=== PATIENT | female | born 1975 | race Caucasian/White ===

== ENCOUNTER 2020-07-01 08:21 | Observation (INO) ==
--- NOTE | 2020-06-13 15:23 | PAT Medication Instructions ---
Medication Instructions Date of Service June 13, 2020 Home Medications duloxetine [Cymbalta] 60 mg PO QAM ibuprofen [Advil] 600 mg PO QAM linaclotide [Linzess] 145 mcg PO QAM pregabalin [Lyrica] 50 mg PO TID trazodone 150 mg PO HS ASK your surgeon for instructions ibuprofen [Advil] 600 mg PO QAM DO NOT take the morning of surgery linaclotide [Linzess] 145 mcg PO QAM Take morning of surgery With a small sip of water, OTHERWISE NOTHING TO EAT OR DRINK AFTER MIDNIGHT: duloxetine [Cymbalta] 60 mg PO QAM pregabalin [Lyrica] 50 mg PO TID Take evening before surgery pregabalin [Lyrica] 50 mg PO TID trazodone 150 mg PO HS Other Notes If you have any questions please call us at [phone] or [phone] or [phone] or [phone]
--- NOTE | 2020-06-17 14:24 | Anesthesiology Consultation ---
Date of Service June 17, 2020 Assessment & Plan (1) Encounter for pre-operative examination: COVID Status: As of 06/17 assessment, patient denies travel to endemic area, known exposure/sick contacts, or symptoms of COVID19. Patient instructed that they and their household members must follow strict social distancing guidelines, wear a mask in public and avoid travel for 14 days prior to surgery. Preoperative COVID19 testing to be completed prior to surgery per surgeon's ar rangements (pt is aware, has date from surgeon's office). Patient made aware to self-isolate as much as possible between COVID testing and surgery. Chart Review Chart Review: Acceptable Risk for Surgery and Patient seen in Pre Admission T esting Teaching & Discussion Instructed NPO after midnight before surgery, except medications with 15 cc of water. Medication instructions provided according to the PAT guidelines. History Surgery Operation Date: 07/01/20 09:35 Proposed Procedures p C3-C4 Anterior Cervical Discectomy and Fusin, Spinal Cord Monitoring - Tee Ramos DO Height/Weight Height: 5 ft 6 in Weight: 65.5 kg Allergies Allergy/AdvReac Type Severity Reaction Status Date / Time No Known Allergies Allergy Unknown NO Verified 06/11/20 15:40 Medications Home Medications Medication Instructions Recorded Confirmed Last Taken duloxetine [Cymbalta] 60 mg PO QAM 06/11/20 06/11/20 Unknown ibuprofen [Advil] 600 mg PO QAM 06/11/20 06/11/20 Unknown linaclotide [Linzess] 145 mcg PO QAM 06/11/20 06/11/20 Unknown pregabalin [Lyrica] 50 mg PO TID 06/11/20 06/11/20 Unknown trazodone 150 mg PO HS 06/11/20 06/11/20 Unknown Past Medical History Medical History Anxiety Depression Migraine Exercise / Class Metabolic Activity II 4-5 Yardwork/Stairs/Walk up hill Past Family History Family History (Updated 06/11/20 @ 15:46 by Rose Purvis RN) Father Diabetes Grandmother (Maternal) Diabetes Past Surgical History Surgical History History of bilateral tubal ligation History of colposcopy History of urinary tract surgery urethral sling History of vaginal surgery anterior and posterior repair Past Anesthesia History No Hx of Anesthesia Complications and No Family Hx of Anesthesia Complications History of PONV No Hx of PONV and Hx of Motion Sickness Social History Smoking Status: Former smoker Do You Dip or Chew Tobacco: No Smoking End Date: 5 yrs ago Hx Alcohol Use: Yes Alcohol type: beer, wine and hard liquor alcohol intake frequency: holidays/special occasions only Hx Substance Use: No substance use type: does not use Review of Systems Pt denies any recent chest pain, shortness of breath, palpitations, cough, fever, URI, or uncontrolled acid reflux. Physical Exam Vital Signs BP: 107/70 P: 69bpm SPO2: 100% RA T: 98.4 F R: 12 ENMT Mouth: no dental restorations, no chipped teeth and no loose teeth Thyromental Distance: > or= 3.5 Finger Breadths Mallampati Class: I Neck normal visual inspection and + limited neck extension ?thyroid fullness Respiratory normal respiratory effort Auscultation: lungs clear to auscultation bilaterally Cardiovascular Rate/Rhythm: regular rate and regular rhythm Heart Sounds: no murmur Extremities: no edema Testing Laboratory Results 06/17/20 14:31 06/17/20 14:31 PT 10.8 Seconds (9.0-12.0) 06/17/20 14: INR 1.0 (0.9-1.1) 06/17/20 14: APTT 26.6 Seconds (21.0-31.0) 06/17/20 14:31 Urine Color Yellow 06/17/20 14:31 Urine Appearance Clear (Clear) 06/17/20 14: Urine pH 8.5 (4.5-7.5) H 06/17/20 14: Ur Specific [place] 1.012 (1.000-1.030) 06/17/20 14: Urine Protein Negative (Negative) 06/17/20 14:31 Urine Glucose (UA) Negative (Negative) 06/17/20 14: Urine Ketones Negative (Negative) 06/17/20 14: Urine Nitrite Negative (Negative) 06/17/20 14:31 Ur Leukocyte Esterase Negative (Negative) 06/17/20 14:31 Blood Type A Positive 06/17/20 14: Antibody Screen NEGATIVE 06/17/20 14: Electrocardiogram Date: 06/17/20 Findings: + NSR @ (62bpm) Chest X-Ray Date: 06/17/20 Findings: + NAD
--- NOTE | 2020-06-17 15:11 | XRay Report ---
XR chest Pre-admission PA/Lat CLINICAL HISTORY: Preoperative chest COMPARISON STUDY: No previous studies for comparison. FINDINGS: The cardiac and mediastinal contours are normal. There is no evidence of focal pulmonary co nsolidation. There is no evidence of failure. No pleural effusions are visualized.[ IMPRESSION: No active disease in the chest. ACT 112: Negative or not required by law. Electronically signed by: Josh Marie M.D. 06/17/2020 3:10 PM
[2020-06-17 15:22] LABS: Basophils # (auto) 0.03 K/uL (0-0.2); Basophils % (auto) 0.5 %; Eosinophils % (auto) 1.5 %; Hematocrit (blood only) 37.1 % (37-47); Hemoglobin 12.1 g/dL (12.0-16.0); Lymphocytes # (auto) 1.21 K/uL (1.2-3.4); Lymphocytes % (auto) 18.3 %; Mean Corpuscular Hemoglobin 30.3 pg (25-34); Mean Corpuscular Hgb Conc 32.6 g/dL (32-36); Mean Platelet Volume 10.9 fL (7.4-10.4); Monocytes # (auto) 0.51 K/uL (0.11-0.59); Monocytes % (auto) 7.7 %; Neutrophils # (auto) 4.75 K/uL (1.4-6.5); Platelet Count 310 K/uL (130-400); RDW Standard Deviation 44.3 fL (36.4-46.3); Red Blood Count 3.99 M/uL (4.2-5.4)
[2020-06-17 15:27] LABS: Appearance Urine Clear (Clear); Bilirubin Urine Negative (Negative); Blood Urine Negative (Negative); Color Urine Yellow; Glucose Urine UA Negative (Negative); Ketones Urine Negative (Negative); Leukocyte Esterase Urine Negative (Negative); Nitrite Urine Negative (Negative); Protein Urine Negative (Negative); Specific Gravity Urine 1.012 (1.000-1.030); Urobilinogen Urine Negative (Negative); pH Urine 8.5 (4.5-7.5)
[2020-06-17 15:28] LABS: BUN Creatinine Ratio 10.8 (10-20); Calcium 9.1 mg/dl (8.5-10.1); Creatinine Clr Calc Pharmacy 88.4 ml/min; Est GFR (African American) 110.6; Est GFR (Non-African American) 95.4; Potassium 3.9 mmol/L (3.5-5.1)
[2020-06-17 15:40] LABS: Partial Thromboplastin Time 26.6 Seconds (21.0-31.0); Prothrombin Time 10.8 Seconds (9.0-12.0)
--- NOTE | 2020-06-17 16:36 | Electrocardiogram Report ---
Test Reason : Blood Pressure : / mmHG Vent. Rate : 062 BPM Atrial Rate : 062 BPM P-R Int : 146 ms QRS Dur : 086 ms QT Int : 434 ms P-R-T Axes : 055 073 064 degrees QTc Int : 440 ms Normal sinus rhythm Normal ECG No previous ECGs available Confirmed by Ryan Mcdonough ([id number]) on 06/17/2020 4:36:17 PM Referred By: Tee Ramos Confirmed By:Ryan Mcdonough
[~2020-07-01 08:21] MED LIST: ACETAMINOPHEN 500 MG TAB PO SCH; CeleBREX 200 MG CAP PO SCH; GABAPENTIN 900 MG DOSE PO SCH; LR 15ML/HR IV SCH; ceFAZolin 1000MG 1,000 MG/7.5 ML SYR IV SCH
[2020-07-01] MEDS ORDERED: DEXAMETHASONE SOD INJ 4 MG/ML VIAL ONE (08:32)
[2020-07-01] MEDS ORDERED: LIDOCAINE HCL 2% 2 ML VIAL/AMP(20MG/ML) INFIL ONE (08:32)
[2020-07-01] MEDS ORDERED: MIDAZOLAM HCL 1 MG/ML 2ML VIAL ONE (08:32)
[2020-07-01] MEDS ORDERED: fentaNYL citrate 100 MCG/2 ML VIAL ONE ×2 (08:32→08:33)
[2020-07-01] MEDS ORDERED: ONDANSETRON INJ 2 MG/ML 2 ML VIAL ONE (08:32)
[2020-07-01] MEDS ORDERED: ROCURONIUM BROMIDE 10 MG/ML 5 ML VIAL IV ONE (08:32)
--- NOTE | 2020-07-01 08:57 | History & Physical Bridge Note ---
Date of Service July 01, 2020 History & Physical Bridge Note I have examined the patient, reviewed the History & Physical and in the interval since the performance of the History & Physical I have noted the following changes of clinical significance: no changes noted
--- NOTE | 2020-07-01 08:58 | History & Physical Report ---
Date of Service July 01, 2020 Assessment & Plan (1) Cervical stenosis of spinal canal: Admission and Anticipated Discharge Date Admission Date: C3-C4 anterior cervical discectomy and fusion History of Present Illness Chief Complaint: Neck and arm pain Primary Care Provider: Silvano Huang This is a 44-year-old female presents with persistent neck and arm pain after failing course of nonoperative care she is here for surgical invention. Allergies Allergy/AdvReac Type Severity Reaction Status Date / Time No Known Allergies Allergy Unknown NO Verified 07/01/20 08:43 Home Medications Home Medications Medication Instructions Recorded Confirmed Type duloxetine [Cymbalta] 60 mg PO QAM 06/11/20 07/01/20 History ibuprofen [Advil] 600 mg PO QAM 06/11/20 07/01/20 History linaclotide [Linzess] 145 mcg PO QAM 06/11/20 07/01/20 History pregabalin [Lyrica] 50 mg PO TID 06/11/20 07/01/20 History trazodone 150 mg PO HS 06/11/20 07/01/20 History Past Med/Surg History Medical History (Updated 07/01/20 @ 08:58 by Tee Ramos DO) Anxiety Depression Migraine Surgical History History of bilateral tubal ligation History of colposcopy History of urinary tract surgery urethral sling History of vaginal surgery anterior and posterior repair Family History Father Diabetes Grandmother (Maternal) Diabetes Social History Smoking Status: Former smoker Smoking End Date: 5 yrs ago; Second Hand Exposure: No; Do You Dip or Chew Tobacco: No; Tobacco Cessation Education Requested by Patient: No Hx Alcohol Use: Yes Alcohol type: beer, wine and hard liquor Hx Substance Use: No Preferred Language: Afghan Communication Ability: Effective Dental Resident Required: No Beliefs That Will Affect Care: None Current Living Situation: Significant Other Other Information That Helps Us Care for You: No Feels Safe at Home: Yes Safety Concerns: Feels Safe At This Time Assistive Devices: Glasses Physical Exam Physical Exam: Patient is alert and oriented Heart regular rate and rhythm Lungs clear to auscultation Results & Data ([place]) Vital Signs (Past 12 Hours) Vital Signs Temp Pulse Resp BP Pulse Ox 07/01/20 08:46 36.7 C 54 L 20 120/50 L 100
[2020-07-01] MEDS ORDERED: BACITRACIN INJ 50,000 UNIT VIAL ONE (09:11)
[2020-07-01] MEDS ORDERED: ePHEDrine sulfate 50 MG/ML AMP IV PRN (09:22)
[2020-07-01] MEDS ORDERED: ONDANSETRON INJ 2 MG/ML 2 ML VIAL IV PRN ×2 (09:22→13:22)
[2020-07-01] MEDS ORDERED: ATROPINE SULFATE 0.1 MG/ML 10ML SYR IV PRN (09:22)
[2020-07-01] MEDS ORDERED: FLOSEAL HEMOSTATIC MATRIX 10ML TOP ONE (10:07)
[2020-07-01] MEDS ORDERED: NEOSTIGMINE METHYLSULFATE 1 MG/ML 10ML VIAL ONE (10:31)
[2020-07-01] MEDS ORDERED: GLYCOPYRROLATE 0.2 MG/ML VIAL ONE (10:31)
--- NOTE | 2020-07-01 10:46 | Operative Report ---
Post Operative Report Pre & Post Diagnosis Operation Date: 07/01/20 09:35 Pre-Op Diagnosis: Spinal Stenosis, Cervical Region Post-Op Diagnosis: Spinal Stenosis, Cervical Region I identified the patient and participated in the time-out.: Yes Procedure Operation Date: 07/01/20 09:35 Actual Procedures #1 anterior cervical discectomy and fusion C3-C4. #2 anterior cervical arthrodesis C3-C4. #3 placement of globus coalition cage 7 mm in height filled with DBM at C3-C4. Surgeon Tee Ramos, [place]ney Supervisor Brick Salina Lauren Estimated Blood Loss 10 Findings Consistent with Post-Op Diagnosis Specimens None Indications This is a 44-year-old female who presents with above-mentioned diagnosis failing course of nonoperative care is here for the above-mentioned procedure. Description of Procedure Patient was met with identified informed consent obtained. Patient was then taken to the operative suite underwent an patient placed in supine position Anish table with head De Oliveira grease maker head. All bony prominences well-padded eyes inspected to ensure no external pressure placed upon them. This point the anterior cervical spine was prepped and draped in a sterile fashion. With the assistance of fluoroscopy identified the C3-C4 displacement transverse incision was placed on the right anterior aspect of the cervical spine. Sharp dissection with assistance of bipolar cautery was performed down to and exposing the anterior cervical spine at C3 and C4. Self-retaining tractor was placed. Then performed a complete discectomy of C3-4 out to the uncovertebral joints bilaterally. [place] distracting pins were utilized to assist in visualization. I removed all posterior annular fibers longitudinal ligament bilateral foraminotomies removal of all central disc herniation removed. Endplates were then burred to subcortical bleeding bone and a 7 mm coalition cage filled with DBM tapped in position. Was screwed into place with 14 mm screws. Incision was then copiously irrigated explored to ensure no damage to surrounding structures remaining bleeding. 10 round ALFREDO inserted. The incision was then closed with 2 Vicryl in a fashion of 4 Monocryl for final skin closure. Steri-Strip sterile dressings placed. Patient will continue PACU stable condition. Please note s kimi cord monitoring was utilized at the procedure and no changes noted. Lastly Salina Lauren was present at the entire surgery involved the patient positioning complex portions of the surgery and final skin closure. I attest to the content of the Intraoperative Record and any orders documented therein. Any exceptions are noted below.
--- NOTE | 2020-07-01 11:07 | Fluoroscopy Report ---
FL cervical 2-3V CLINICAL HISTORY: ACDF C3-C4 COMPARISON STUDY: MRI of the cervical spine April 18, 2020. FLUOROSCOPY TIME: 7 seconds. FLUOROSCOPIC IMAGES: 2 FINDINGS: Fluoroscopy was provided during C3-C4 anterior discectomy and fusion. Hardware is intact. S econd image demonstrates a probable surgical drain. Endotracheal tube is partially imaged. IMPRESSION: Fluoroscopy provided during C3-C4 anterior discectomy and fusion. ACT 112: Negative or not required by law. Electronically signed by: Kiran Flannery M.D. 07/01/2020 11:05 AM
[2020-07-01] MEDS: fentaNYL citrate 100 MCG/2 ML VIAL IV PRN ×4 (11:13→11:34)
[2020-07-01] MEDS ORDERED: HYDROmorphone INJ 1 MG/ML SYRINGE ONE (11:44)
[2020-07-01] MEDS: HYDROmorphone INJ 1 MG/ML SYRINGE IV PRN ×4 (11:50→12:14)
--- NOTE | 2020-07-01 12:28 | Anesthesiology Progress Note ---
Date of Service July 01, 2020 Anesthesia Post Procedure Vital Signs Vital Signs: Temp Pulse Pulse Resp BP BP Pulse Ox 07/01/20 12:20 68 16 108/60 96 07/01/20 12:10 74 16 115/67 94 07/01/20 12:00 75 16 112/66 96 07/01/20 11:50 78 16 116/65 97 07/01/20 11:40 72 16 114/70 96 07/01/20 11:30 75 14 119/67 97 07/01/20 11:20 80 16 116/75 100 07/01/20 11:10 98 H 16 115/73 100 07/01/20 11:03 97.0 F L 117 H 12 123/71 96 07/01/20 08:46 98.1 F 54 L 20 120/50 L 100 Pain Intensity Anterior Neck: Pain Intensity: 6 Posterior Neck: Pain Intensity: 7 Transfer of Care Handoff Completed per policy Notes Mental Status: alert / awake / arousable and participated in evaluation Patient Amnestic to Procedure: Yes Nausea / Vomiting: adequately controlled Pain: adequately controlled Airway Patency, RR, SpO2: stable & adequate BP & HR: stable & adequate Hydration State: stable & adequate Anesthetic Complications: no major complications apparent and Pt Satisfied with anesthetic care
[2020-07-01] MEDS ORDERED: LORazepam 0.5 MG/1 ML VIAL IV PRN (13:22)
[2020-07-01] MEDS ORDERED: hydrOXYzine HCl 25 MG TAB PO PRN (13:22)
[2020-07-01] MEDS ORDERED: DO NOT ADMINISTER FLU VACCINE PRN (13:22)
[2020-07-01] MEDS ORDERED: HYDROmorphone INJ 0.5 MG/0.5 ML SYR IV PRN (13:22)
[2020-07-01] MEDS ORDERED: DO NOT ADMINISTER PNEUMOCOCCAL VACCINE PRN (13:22)
[2020-07-01] MEDS ORDERED: traMADol HCL 50 MG TABLET PO PRN (13:22)
[2020-07-01] MEDS ORDERED: RACEPINEPHRINE 2.25% NEBU SOLN 0.5 ML VIAL INH PRN (13:22)
[2020-07-01] MEDS ORDERED: MAGNESIUM HYDROXIDE SUSP 30 ML UDC PO PRN (13:22)
[2020-07-01] MEDS ORDERED: FAMOTIDINE 20 MG TAB PO PRN (13:22)
[2020-07-01] MEDS ORDERED: HYDROmorphone INJ 1 MG/ML SYRINGE IV PRN (13:22)
[2020-07-01] MEDS ORDERED: ACETAMINOPHEN 500 MG TAB PO PRN (13:22)
[2020-07-01] MEDS ORDERED: NALOXONE HCL 0.4 MG/1 ML VIAL/CARP IV PRN (13:22)
[2020-07-01] MEDS ORDERED: METOCLOPRAMIDE HCL INJ 5 MG/ML 2 ML VIAL IV PRN (13:22)
[2020-07-01] MEDS ORDERED: DEXAMETHASONE SOD PHOSPHATE 8 MG in SYRINGE 0 ML IV PRN (13:22)
[2020-07-01] MEDS ORDERED: ALUMINUM/MAGNESIUM SUSP 30 ML UDC PO PRN (13:22)
[2020-07-01] MEDS ORDERED: ACETAMINOPHEN 1,000 MG/100 ML VIAL IV PRN (13:22)
[2020-07-01] MEDS ORDERED: SOD PHOSPHATE/SOD BIPHOSPHATE ENEMA 132 ML BTL PR PRN (13:22)
[2020-07-01] MEDS ORDERED: PROMETHAZINE HCL 12.5 MG in SODIUM CHLORIDE 0.9% 50 ML IV PRN (13:22)
[2020-07-01] MEDS ORDERED: diphenhydrAMINE Capsule 25 MG CAP PO PRN (13:22)
[2020-07-01] MEDS ORDERED: ONDANSETRON 4 MG OD TAB PO PRN (13:22)
[2020-07-01] MEDS: oxyCODONE HCL IR 5 MG TAB (IMMEDIATE RELEASE) PO PRN ×3 (14:24→23:27)
[2020-07-01] MEDS: LACTATED RINGER'S 1,000 ML IV SCH ×2 (14:25→19:17)
[2020-07-01] MEDS: PREGABALIN 50 MG CAP PO SCH ×2 (14:28→20:51)
[2020-07-01] MEDS: LORazepam 0.5 MG TAB PO PRN (18:46)
[2020-07-01] MEDS: ceFAZolin 1000MG 1,000 MG/7.5 ML SYR IV SCH (18:47)
[2020-07-01] MEDS ORDERED: traZODone HCL 50 MG TAB PO SCH (21:00)
[2020-07-01] MEDS ORDERED: DOCUSATE SODIUM/SENNA 50/8.6MG TAB PO SCH (21:00)
[2020-07-02] MEDS: ceFAZolin 1000MG 1,000 MG/7.5 ML SYR IV SCH (03:10)
[2020-07-02] MEDS: LORazepam 0.5 MG TAB PO PRN ×2 (03:10→08:56)
[2020-07-02] MEDS: oxyCODONE HCL IR 5 MG TAB (IMMEDIATE RELEASE) PO PRN ×2 (03:14→07:19)
[2020-07-02] MEDS ORDERED: POLYETHYLENE (MIRALAX) 17 GM PACK PO SCH (06:00)
[2020-07-02 07:15] VITALS: TEMP 97.9
[2020-07-02] MEDS: PREGABALIN 50 MG CAP PO SCH (08:56)
[2020-07-02] MEDS ORDERED: DULoxetine HCL 60 MG CAP PO SCH (09:00)
[2020-07-02 09:30] VITALS: BP 97/60
[2020-07-02 10:54] VITALS: PULSE 73; O2SAT 96
--- NOTE | 2020-07-02 11:50 | Discharge Summary ---
Date of Service July 02, 2020 Admission HPI Per Admitting Provider This is a 44-year-old female presents with persistent neck and arm pain after failing course of nonoperative care she is here for surgical invention. Principal Diagnosis Cervical spinal stenosis with radiculopathy Discharge Data Allergies Allergy/AdvReac Type Severity Reaction Status Date / Time chlorhexidine Allergy Rash Verified 07/01/20 08:59 Procedures Performed Operation Date: 07/01/20 09:35 Actual Procedures p C3-C4 Anterior Cervical Discectomy and Fusion, Spinal Cord Monitoring(Not Applicable) - Tee Ramos DO Ordered Studies 07/01/20 09:35 FL cervical 2-3V Routine FL fluoroscopy <1hr Routine Hospital Course (1) Cervical stenosis of spinal canal: Patient underwent anterior cervical discectomy fusion C3-C4 tolerates well was taken to orthopedic floor postoperative. Postop day 1 she is swallowing well no hoarseness arm symptoms improved swallowing well ALFREDO drain decreasing probably. Subsequent discharge home. Discharge orders instructions from the chart for further review. Total Time Total Time Spent Total Time Spent (In Minutes): 20 minutes Discharge Plan Discharge Items Patient Disposition: Home - Self-Care Reason For Visit: Spinal Stenosis, Cervical Region Discharge Diagnosis: Cervical spinal stenosis with myeloradiculopathy Activity: As commented below Non-emergency contact: Primary Care Provider Call non-emergency contact if: you have any medication questions Follow-up/Referrals: Silvano Huang [Primary Care Provider] - Diet: Regular Addtl Attending Provider Instructions: ACTIVITY RECOMMENDATIONS: SELF CARE INSTRUCTIONS AFTER CERVICAL FUSIONS 1. No smoking. Smoking drastically decreases the chance of a solid fusion. 2. No bending, lifting more than 5 pounds, or twisting (roll like a log when turning in bed). 3. You may shower 3 days after surgery. Thoroughly dry wound. Do not soak in the tub. 4. Cervical collar: Must be worn at all times including sleeping. You may remove the brace only to bath, eat and if you are sitting in a recliner. 5. Please walk as much as you can for exercise. Gradually increase the distance that you walk as your endurance increases. SPECIAL CARE INSTRUCTIONS: VERY IMPORTANT TO READ AND REVIEW A. Do not take any anti-inflammatory medications (i.e. Indocin, Advil, Aspirin, Naprosyn, Aleve, Motrin, etc.) as these may inhibit the chance of a solid fusion. Tylenol is okay to take. B. Your surgical incision has been closed with a cosmetic suture under the skin that will dissolve in about 6 weeks. In 14 days, you can use a pair of clean scissors and cut the suture that is left outside of the skin at the ends of your incision. C. Complications are uncommon, but please contact us if you have any signs or symptoms of: 1. wound infection (fever higher than 102.5 degrees F, redness, separation of wound, drainage, or increasing pain from the incision) 2. blood clots in legs (pain, swelling, redness and warmth in legs) 3. urinary tract infection (fever higher than 102.5 degrees, burning upon urination or increased frequency of urination) 4. nerve problems (inability to walk on your toes or heels, numbness, loss of bowel or bladder control) 5. any other symptoms that concern you. D. Please call the office at if you have any concerns or questions about your operation or recovery. MANAGING PAIN AFTER SPINAL SURGERY 1. Narcotic medication is intended for short-term use and will be provided for surgical pain. Surgical pain usually lasts for a period of 4-6 weeks. Narcotic medication includes Percocet, Vicodin, Darvocet, Tylenol #3 or Lortab. 2. Longer-term pain is more appropriately treated with non-narcotic medication such as Tylenol ES. 3. Muscle spasm is not appropriately treated with narcotics. Muscle relaxers such as Soma, Flexeril or Skelaxin can be used along with Tylenol ES. 4. Remember that we all live with some "aches and pains". This is not unusual or uncommon after an injury or as we get older. 5. We will provide appropriate medication within the normal guidelines of their prescribed use. We will also be very cautious and aware of potential abuse and extended duration of patients' medication needs. 6. Please allow 2-3 days to process refills. Prescriptions will not be mailed but must be picked up at the office. FOLLOW UP VISIT: Keep your scheduled follow-up appointment. Any questions, please call the office at . Pending Studies at Discharge: No Stand-Alone Forms: [facility], Opioid Pain Management, Smoking Cessation Medications and DC Order Prescriptions: New tramadol 50 mg tablet 50 mg PO Q6H PRN (Reason: pain, moderate) Qty: 20 RF: 0 oxycodone 5 mg tablet 5 mg PO Q6H PRN (Reason: pain, severe) Qty: 20 RF: 0 Continued trazodone 150 mg Tablet 150 mg PO HS RF: 0 ibuprofen [Advil] 200 mg Tablet 600 mg PO QAM RF: 0 duloxetine [Cymbalta] 60 mg Capsule,Delayed Release(Dr/Ec) 60 mg PO QAM RF: 0 pregabalin [Lyrica] 50 mg Capsule 50 mg PO TID RF: 0 Linzess 145 mcg Capsule 145 mcg PO QAM RF: 0 Discharge Orders: Discharge Order (Routine); Ordered 07/02/20 Ordered By: Tee Farah/Other Patient Handouts: ED Cervical Collar Admission Data Admit Date/Time: 07/01/20 11:09 Attending Provider: Tee Ramos Admit Provider: Tee Ramos Primary Care Provider: Silvano Huang Other Interventions: Discharge Summary Assessment (RN) Last Done: 07/02/20 09:29
[2020-07-03] MEDS ORDERED: bisacodyL 10 MG SUPP PR PRN (10:48)
== END 2020-07-02 12:16 | disposition home or self-care (01) ==
LOC: ASU 08:21 → 3E 08:21

== ENCOUNTER 2021-07-19 18:41 | Inpatient (IN) ==
[2021-07-19] MEDS ORDERED: MoRPHine SULFATE 10 MG/ML CARP/VIAL IM STA (20:10)
[2021-07-19] MEDS ORDERED: KETOROLAC TROMETHAMINE 60 MG/2 ML VIAL IM STA (20:10)
--- NOTE | 2021-07-19 20:13 | Emergency Department Note ---
Impression & Plan Cervical radiculopathy ADMIT ED Provider Note HPI: The patient is a 46-year-old female with history of cervical stenosis, presents the emergency department with multiple complaints. Patient states that over the past several days she has had worsening pain in the area of the bilateral trapezius and upper back, states that she is also had some numbness/tingling in her bilateral upper extremities. Patient states that she had an MRI performed of her thoracic spine this past at [facility], states she is unaware of the results as of yet. She follows with Dr. Ramos from spinal surgery who has previously performed anterior discectomy and C3/C4 fusion approximately 1 year ago for the patient. Patient tells me that she was scheduled to have a surgery done for discectomy of her cervical spine tomorrow, states that this was delayed secondary to bed shortage and COVID-19 pandemic. Patient states that she was told if her pain worsen to come to the emergency department. She states that her pain has been worsening and she would like Dr. Ramos to be consulted. ROS: -MSK: Upper back pain, radicular pain from cervical spine area *10 point review systems was conducted and is otherwise negative unless stated above *Outpatient medications and allergy history reviewed PE: General: Alert, NAD HEENT: Normocephalic, atraumatic, trachea midline Eyes: Extraocular eye movement is intact, no scleral erythema Pulmonary: Clear to auscultation bilaterally, no wheezing Cardio: Regular rate and rhythm GI: Abdomen is soft, nontender : No suprapubic tenderness MSK: No evidence of trauma or malformation of the extremities, no edema Skin: No evidence of rash Neuro: Alert, equal bilateral boring machine operator double end strength, dorsiflexion and plantarflexion strength is 5 out of 5, patient does not have any focal deficits Psychiatric: Cooperative Medical Decision Making: Shortly after arrival the patient was given IM Toradol, IM steroids, IM morphine for pain. On my reassessment she states that she does feel improved. She does not have any acute emergent neurologic findings on my exam, her strength is intact, she is ambulatory without issue. She was previously scheduled apparently for discectomy which she tells me was supposed to be done tomorrow, I did discuss the above findings with Dr. Ramos who states that given that the pain is worsening and the patient is very upset at the prospect of discharge home he will admit to his service for further management and review of MRI that was obtained last week Patient was in agreement to the above plan and she was admitted to observation under Dr. Ramos's service for further care. * Diagnosis: Cervical radiculopathy, upper back pain, radicular pain * Disposition: Admission to observation Derrek Segovia DO Emergency Medicine Past Med/Surg History Medical History Anxiety Chronic back pain LOWER BACK Depression Migraine HX Surgical History Fusion of spine CERVICAL-07/01/20 [facility] History of bilateral tubal ligation History of colposcopy History of urinary tract surgery urethral sling History of vaginal surgery anterior and posterior repair Family History Father Diabetes Grandmother (Maternal) Diabetes Social History (Updated 05/14/21 @ 09:49 by Rubina Banerjee RN) Smoking Status: Current every day smoker Tobacco Type: E-cigarettes / Vaping Cigarettes Per Day: VAPES DAILY; Second Hand Exposure: Yes (PARENTS SMOKED); Hx Alcohol Use: Yes Alcohol type: beer, wine and hard liquor Hx Substance Use: No Preferred Language: Croatian Communication Ability: Effective Rabbit Dresser Required: No Beliefs That Will Affect Care: None marital status: Life Partner Current Living Situation: Significant Other current occupational status: other current occupation: DOES NOT WORK Feels Safe at Home: Yes Assistive Devices: None Allergies Allergies Allergy/AdvReac Type Severity Reaction Status Date / Time chlorhexidine Allergy Rash Verified 07/01/20 08:59 Home Meds Home Medications Medication Instructions Recorded Confirmed duloxetine 60 mg capsule,delayed 60 mg PO QAM 06/11/20 05/14/21 release (Cymbalta) ibuprofen 200 mg tablet (Advil) 400 mg PO Q6H PRN 06/11/20 05/14/21 linaclotide 145 mcg capsule 145 mcg PO QAM 06/11/20 05/14/21 (Linzess) pregabalin 50 mg capsule (Lyrica) 50 mg PO TID 06/11/20 05/14/21 trazodone 150 mg tablet 150 mg PO HS 10/14/20 09/16/21 Results & Data (ED) Vital Signs Vital Signs - 24 hr 07/19/21 19:05 07/19/21 21:03 Temperature 36.5 C Temperature Source Temporal Artery Scan Pulse Rate 103 H Pulse Rate [Radial] 75 Respiratory Rate 18 20 Respiratory Depth Normal Blood Pressure 110/69 Blood Pressure [Right Arm] 104/54 L Blood Pressure Mean 82 Blood Pressure Mean [Right Arm] 70 Blood Pressure Position Sitting Pulse Oximetry 98 95 Oxygen Delivery Method Room Air Room Air Sepsis Recent Fever Within 48 Hours No Sepsis New/Unexplained Change in Mental Status N/A Sepsis Action Taken by Nursing No Action Required Administered Medications Discontinued Medications Ketorolac Tromethamine (Ketorolac Tromethamine 60 Mg/2 Ml Vial) 60 mg IM NOW STA Stop: 07/19/21 20:11 Last Admin: 07/19/21 20:35 Dose: 60 mg Documented by: [id number] Methylprednisolone (Methylprednisolone 40 Mg/Ml Vial) 80 mg IM NOW STA Stop: 07/19/21 20:11 Last Admin: 07/19/21 20:35 Dose: 80 mg Documented by: [id number] Morphine Sulfate (Morphine Sulfate 10 Mg/Ml Carp/Vial) 6 mg IM NOW STA Stop: 07/19/21 20:11 Last Admin: 07/19/21 20:34 Dose: 6 mg Documented by: [id number] Discharge Plan Visit Data Chief Complaint: Neck Injury/Pain Stated Complaint: HERNIATED DISC IN NECK,PAIN INTO SHOULDERS ED Provider: Derrek Segovia Discharge Problem: Cervical radiculopathy Forms Stand Alone Forms: [facility] Prescriptions Prescriptions: No Action trazodone 150 mg Tablet 150 mg PO HS RF: 0 ibuprofen [Advil] 200 mg Tablet 400 mg PO Q6H PRN (Reason: Pain) RF: 0 duloxetine [Cymbalta] 60 mg Capsule,Delayed Release(Dr/Ec) 60 mg PO QAM RF: 0 pregabalin [Lyrica] 50 mg Capsule 50 mg PO TID RF: 0 Linzess 145 mcg Capsule 145 mcg PO QAM RF: 0 Referrals Referrals: Silvano Huang [Primary Care Provider] -
[2021-07-20] MEDS ORDERED: MoRPHine SULFATE 4 MG/ML 1 ML CARP\\VIAL IV STA (01:21)
[2021-07-20] MEDS ORDERED: NALOXONE HCL 0.4 MG/1 ML VIAL/CARP IV PRN (02:13)
[2021-07-20] MEDS ORDERED: ACETAMINOPHEN 1,000 MG/100 ML VIAL IV PRN (02:13)
[2021-07-20] MEDS ORDERED: SOD PHOSPHATE/SOD BIPHOSPHATE ENEMA 132 ML BTL PR PRN (02:13)
[2021-07-20] MEDS ORDERED: LORazepam 0.5 MG/1 ML VIAL IV PRN (02:13)
[2021-07-20] MEDS ORDERED: diphenhydrAMINE Capsule 25 MG CAP PO PRN (02:13)
[2021-07-20] MEDS ORDERED: LORazepam 0.5 MG TAB PO PRN (02:13)
[2021-07-20] MEDS ORDERED: MAGNESIUM HYDROXIDE SUSP 30 ML UDC PO PRN (02:13)
[2021-07-20] MEDS ORDERED: LACTATED RINGER'S 1,000 ML IV SCH (02:13)
[2021-07-20] MEDS ORDERED: oxyCODONE HCL IR 5 MG TAB (IMMEDIATE RELEASE) PO PRN (02:13)
[2021-07-20] MEDS ORDERED: ACETAMINOPHEN 500 MG TAB PO PRN (02:13)
[2021-07-20] MEDS ORDERED: PROMETHAZINE HCL 12.5 MG in SODIUM CHLORIDE 0.9% 50 ML IV PRN (02:13)
[2021-07-20] MEDS ORDERED: traMADol HCL 50 MG TABLET PO PRN (02:13)
[2021-07-20] MEDS ORDERED: ONDANSETRON INJ 2 MG/ML 2 ML VIAL IV PRN (02:13)
[2021-07-20] MEDS ORDERED: ONDANSETRON 4 MG OD TAB PO PRN (02:13)
[2021-07-20] MEDS ORDERED: HYDROmorphone INJ 0.5 MG/0.5 ML SYR IV PRN (02:13)
[2021-07-20] MEDS ORDERED: hydrOXYzine HCl 25 MG TAB PO PRN (02:13)
[2021-07-20] MEDS ORDERED: ALUMINUM/MAGNESIUM SUSP 30 ML UDC PO PRN (02:13)
[2021-07-20] MEDS ORDERED: METOCLOPRAMIDE HCL INJ 5 MG/ML 2 ML VIAL IV PRN (02:13)
[2021-07-20] MEDS: HYDROmorphone INJ 1 MG/ML SYRINGE IV PRN ×4 (02:37→16:48)
--- NOTE | 2021-07-20 03:01 | Hospitalist Consultation ---
Date of Consultation July 20, 2021 Assessment & Plan (1) Cervical radiculopathy: Final Assessment and Recommendations as follows : Cervical radiculopathy status post surgery Worsening debility Anxiety/mood disorder, at baseline Surgical management of cervical radiculopathy as per Orthopedics spine Hold parameters for nightly Trazodone for sedation confusion. DVT prophylaxis. SCDs as per Orthopedics admission orders. Thank you very much for this consultation. Dr. Reyes will follow patient's progress. Text document was generated using [employer] voice recognition software. It may contain grammatical or spelling errors. Kindly contact undersigned for clarification of any documentation item in question. History of Present Illness Reason for Consultation: Medical management Requesting Physician: Dr. Ramos Attending Physician: Tee Ramos DO History of Present Illness PCP : Dr. Huang History obtained from patient and records. Medical history significant for chronic back pain status post surgery anxiety/mood disorder, migraine. Last confinement June 2020 under orthopedic spine service for cervical radiculopathy status post surgery. Patient noted worsening neck pain with right upper extremity radiation and weakness the last few months. Elective cervical spine surgery supposedly scheduled today was to be delayed secondary to hospital bed shortage secondary to COVID-19 pandemic. Patient consulted ER yesterday for worsening symptoms. Currently admitted under Orthopedics spine service. Patient denies chest pain, S OB, fever, chills. Medical History as above Surgical History : Neck surgery, BTL, gynecologic procedures Family History : DM Personal/Social history : Vape use, occasional EtOH intake, disabled Allergies Allergy/AdvReac Type Severity Reaction Status Date / Time chlorhexidine Allergy Rash Verified 07/01/20 08:59 Home Medications Medication Instructions Recorded Confirmed Type duloxetine 60 mg capsule,delayed 60 mg PO QAM 06/11/20 05/14/21 History release (Cymbalta) ibuprofen 200 mg tablet (Advil) 400 mg PO Q6H PRN 06/11/20 05/14/21 History pregabalin 50 mg capsule (Lyrica) 50 mg PO TID 06/11/20 05/14/21 History trazodone 150 mg tablet 150 mg PO HS 06/11/20 05/14/21 History linaclotide 72 mcg capsule 72 mcg PO DAILY 07/20/21 07/20/21 History (Linzess) Patient History Medical History Anxiety Chronic back pain LOWER BACK Depression Migraine HX Surgical History Fusion of spine [facility]ERVICAL-07/01/20 [facility] History of bilateral tubal ligation History of colposcopy History of urinary tract surgery urethral sling History of vaginal surgery anterior and posterior repair Family History Father Diabetes Grandmother (Maternal) Diabetes Social History Smoking Status: Never smoker Tobacco Type: E-cigarettes / Vaping Cigarettes Per Day: VAPES DAILY; Second Hand Exposure: Yes (PARENTS SMOKED); Hx Alcohol Use: No Hx Substance Use: No Preferred Language: Indonesian Communication Ability: Effective Nanotechnology Engineering Technician Required: No Beliefs That Will Affect Care: None marital status: Life Partner Current Living Situation: Family current occupational status: other current occupation: DOES NOT WORK Feels Safe at Home: Yes Safety Concerns: Feels Safe At This Time Assistive Devices: None Review of Systems Review of Systems: As per HPI, all 10 systems reviewed, all other ROS negative Physical Exam Physical Exam: GENERAL: Comfortable, pleasant, no respiratory distress SKIN: Normal color, warm HEENT: [place] palpebral conjunctivae, no ptosis, moist buccal mucosa NECK : Some limitation neck motion, minimal cervical tenderness CHEST : CTA, no tenderness HEART : RRR, no obvious murmurs ABDOMEN: Some distention, nontender EXTREMITIES : No LE swelling/tenderness, no other conspicuous deformities noted NEUROLOGIC : Coherent, no facial asymmetry, subtle weakness RUE compared to LUE Results & Data Results & Data ([facility]) Vital Signs (Past 12 Hours) Vital Signs Temp Pulse Pulse Resp BP BP Pulse Ox 07/20/21 01:51 72 16 114/64 99 07/20/21 00:06 74 16 112/62 100 07/19/21 21:03 75 20 104/54 L 95 07/19/21 19:05 36.5 C 103 H 18 110/69 98 Laboratory Results Laboratory Results SARS-CoV-2, RNA, NAAT NEGATIVE (NEGATIVE) 07/19/21 22:38
[2021-07-20] MEDS: DULoxetine HCL 60 MG CAP PO SCH (07:30)
[2021-07-20] MEDS: PREGABALIN 50 MG CAP PO SCH ×3 (08:42→20:03)
[2021-07-20] MEDS ORDERED: LINACLOTIDE 145 MCG CAPSULE PO SCH (09:00)
--- NOTE | 2021-07-20 12:43 | Hospitalist Progress Note ---
Date of Service July 20, 2021 Assessment & Plan (1) Cervical radiculopathy: Plan: This is a 46-year-old female who is otherwise healthy who presented to ER due to persistent neck pain with radiation of numbness and tingling to right upper extremity. She has a prior C3-C4 ACDF approximately [address] Rmaos. Evidence of a large disc herniation at C5-C6 Appreciated Ortho input and recommendation for anterior cervical discectomy and fusion C5-C6 on 07/21/2021 Pain management per orthopedics NPO after midnight, resume LR @ midnight Back pain with lumbar radiculopathy Complains to have back pain with radiation to the left lower extremity Straight leg is painful Minimal numbness involving toes of the left foot There was a 19 x 7 mm broad-based central/right paracentral disc protrusion at L5-S1 on 12/08/2020 (2) Myelopathy concurrent with and due to spinal stenosis of cervical region: Plan: Anxiety/Depression mood stable DVT ppx: per surgery Dispo: awaiting surgery FULL CODE PCP Dr. Huang Admission and Anticipated Discharge Date Admission Date: July 19, 2021 Subjective Patient was seen and examined in room 316. Follow-up cervical radiculopathy with associated numbness to right hand. She offers no acute concerns. She continues to complain of neck pain but otherwise denies fever, chills, sweats, lightheadedness, dizziness, chest pain, shortness of breath, nausea, vomiting, abdominal pain. Despite neck pain she is active and admits to being able to ambulate 1 flight of steps without chest pain or shortness of breath. She denies any prior history of coronary artery disease or hypertension. She has positive family history of father with cardiac surgery in his 40s, but he had other risk factors including hypertension, alcohol abuse and hyperlipidemia. Review of Systems Review of Systems: All systems reviewed & are unremarkable except as noted in HPI & below Physical Exam Physical Exam: Gen: WD/WN, NAD, A&O x3 HEENT: Normocephalic, atraumatic, conjunctivae moist, sclerae anicteric, mucous membranes moist. Lung: Clear to Auscultation bilaterally, no wheezes/rales/rhonchi Heart: Regular rate, regular rhythm, no murmurs, rubs, or gallops Abdomen: Soft, NT, ND +BS x 4 Extremities: No edema Skin: Warm, no rash, negative turgor. Results & Data Results & Data ([facility]) Vital Signs (Past 12 Hours) Vital Signs Temp Pulse Pulse Resp BP Pulse Ox 07/20/21 07:28 36.4 C L 61 16 103/65 91 07/20/21 03:13 36.5 C 66 16 129/83 96 07/20/21 01:51 72 16 114/64 99 Laboratory Results Lab work 05/19/2021 CBC, CMP unremarkable, urinalysis negative Diagnostic Findings Chest x-ray: 05/19/21 no acute cardiopulmonary findings Medications Administered Current Inpatient Medications Acetaminophen (Acetaminophen 500 Mg Tab) 1,000 mg PO Q8H PRN PRN Reason: MILD Pain Scale 1,2,3 & Pre PT Stop: 08/19/21 02:12 Al Hydrox/Mg Hydrox/Simethicone (Aluminum/Magnesium Susp 30 Ml Udc) 30 ml PO Q6H PRN PRN Reason: Dyspepsia Stop: 08/19/21 02:12 Bisacodyl (Bisacodyl 10 Mg Supp) 10 mg DC DAILY PRN PRN Reason: Constipation Stop: 08/20/21 22:33 Diphenhydramine HCl (Diphenhydramine Capsule 25 Mg Cap) 25 mg PO Q6H PRN PRN Reason: Allergic Rhinitis/Insomnia Stop: 08/19/21 02:12 Duloxetine HCl (Duloxetine Hcl 60 Mg Cap) 60 mg PO QAM JONELLE Stop: 08/19/21 08:59 Last Admin: 07/20/21 07:30 Dose: 60 mg Documented by: Hydromorphone HCl (Hydromorphone Inj 0.5 Mg/0.5 Ml Syr) 0.5 mg IV Q3H PRN PRN Reason: MOD pain (scale 4-6) & Pre PT Stop: 08/03/21 02:12 Hydromorphone HCl (Hydromorphone Inj 1 Mg/Ml Syringe) 1 mg IV Q3H PRN PRN Reason: severe pain (scale 7-10) Stop: 08/03/21 02:12 Last Admin: 07/20/21 11:25 Dose: 1 mg Documented by: Hydroxyzine HCl (Hydroxyzine Hcl 25 Mg Tab) 25 mg PO Q8H PRN PRN Reason: Anxiety Stop: 08/19/21 02:12 Lactated Ringer's (Lr) 1,000 mls @ 75 mls/hr IV .[id number] JONELLE Stop: 08/19/21 02:12 Last Admin: 07/20/21 02:37 Dose: 75 mls/hr Documented by: Promethazine HCl 12.5 mg/ (Sodium Chloride) 50.5 mls @ 202 mls/hr IV Q6H PRN PRN Reason: Nausea &/or Vomiting Stop: 08/19/21 02:12 Acetaminophen (Ofirmev) 1,000 mg in 100 mls @ 400 mls/hr IV Q8H PRN PRN Reason: Pain Rating 1-3 & Pre PT Stop: 07/23/21 02:12 Lorazepam (Ativan) 0.5 mg in 1 mls @ 1 mls/min IV Q8H PRN PRN Reason: Sedation/Anxiety Stop: 08/19/21 02:12 Linaclotide (Linaclotide 145 Mcg Capsule) 145 mcg PO QAM [facility] Stop: 08/19/21 08:59 Last Admin: 07/20/21 07:31 Dose: Not Given Documented by: Lorazepam (Lorazepam 0.5 Mg Tab) 0.5 mg PO Q8H PRN PRN Reason: sedation/anxiety Stop: 08/19/21 02:12 Magnesium Hydroxide (Magnesium Hydroxide Susp 30 Ml Udc) 30 ml PO Q24H PRN PRN Reason: Constipation Stop: 08/19/21 02:12 Metoclopramide HCl (Metoclopramide Hcl Inj 5 Mg/Ml 2 Ml Vial) 10 mg IV Q6H PRN PRN Reason: Nausea &/or Vomiting Stop: 08/19/21 02:12 Naloxone HCl (Naloxone Hcl 0.4 Mg/1 Ml Vial/Carp) 0.1 mg IV Q5M PRN PRN Reason: Oversedation/respiratory dep Stop: 08/19/21 02:12 Ondansetron HCl (Ondansetron Inj 2 Mg/Ml 2 Ml Vial) 4 mg IV Q6H PRN PRN Reason: Nausea &/or Vomiting Stop: 08/19/21 02:12 Ondansetron HCl (Ondansetron 4 Mg Od Tab) 4 mg PO Q6H PRN PRN Reason: Nausea Stop: 08/19/21 02:12 Oxycodone HCl (Oxycodone Hcl Ir 5 Mg Tab (Immediate Release)) 5 - 10 mg PO Q4H PRN PRN Reason: mod to severe pain Stop: 08/03/21 02:12 Pregabalin (Pregabalin 50 Mg Cap) 50 mg PO TID [facility] Stop: 08/19/21 08:59 Last Admin: 07/20/21 08:42 Dose: 50 mg Documented by: Sodium Biphosphate/Sodium Phosphate (Sod Phosphate/Sod Biphosphate Enema 132 Ml Btl) 132 ml DC ONE PRN PRN Reason: Constipation Stop: 08/19/21 02:12 Tramadol HCl (Tramadol Hcl 50 Mg Tablet) 50 - 100 mg PO Q4H PRN PRN Reason: Moderate-Severe pain & Pre PT Stop: 08/19/21 02:12 Trazodone HCl (Trazodone Hcl 50 Mg Tab) 150 mg PO HS [facility] Stop: 08/19/21 20:59 ECG Additional Comments: 05/19/2021, ventricular rate 64 bpm, QTC 427, normal sinus rhythm.
--- NOTE | 2021-07-20 15:41 | History & Physical Report ---
Date of Service July 20, 2021 Assessment & Plan (1) Cervical radiculopathy: Plan: Assessment herniated nucleus pulposus C5-C6. Plan at this time she is understands course of nonoperative care continues to have cervical radiculopathy and evidence of a large disc herniation at C5-C6. In light of her presentation failed nonoperative care she would require an anterior cervical discectomy and fusion C5-C6. Risk benefits pros cons alternatives were outlined in detail. Admission and Anticipated Discharge Date Admission Date: July 19, 2021 History of Present Illness Chief Complaint: Severe neck and arm pain Primary Care Provider: Silvano Huang This is a 46-year-old female has had a marked decline in status over the past several months with worsening neck and right arm radiculopathy. Allergies Allergy/AdvReac Type Severity Reaction Status Date / Time chlorhexidine Allergy Rash Verified 07/01/20 08:59 Home Medications Medication Instructions Recorded Confirmed Type duloxetine 60 mg capsule,delayed 60 mg PO QAM 06/11/20 07/20/21 History release (Cymbalta) ibuprofen 200 mg tablet (Advil) 400 mg PO Q6H PRN 06/11/20 07/20/21 History pregabalin 50 mg capsule (Lyrica) 50 mg PO TID 06/11/20 07/20/21 History trazodone 150 mg tablet 150 mg PO HS 06/11/20 07/20/21 History linaclotide 72 mcg capsule 72 mcg PO DAILY 07/20/21 07/20/21 History (Linzess) Past Med/Surg History Medical History Anxiety Chronic back pain LOWER BACK Depression Migraine HX Surgical History Fusion of spine CERVICAL-07/01/20 [facility] History of bilateral tubal ligation History of colposcopy History of urinary tract surgery urethral sling History of vaginal surgery anterior and posterior repair Family History Father Diabetes Grandmother (Maternal) Diabetes Social History Smoking Status: Never smoker Tobacco Type: E-cigarettes / Vaping Cigarettes Per Day: VAPES DAILY; Second Hand Exposure: Yes (PARENTS SMOKED); Hx Alcohol Use: No Hx Substance Use: No Preferred Language: Venezuelan Communication Ability: Effective Cnc Manager Required: No Beliefs That Will Affect Care: None marital status: Life Partner Current Living Situation: Family current occupational status: other current occupation: DOES NOT WORK Feels Safe at Home: Yes Safety Concerns: Feels Safe At This Time Assistive Devices: None Physical Exam Physical Exam: Physical exam patient continues to demonstrate markedly positive Spurling's to the right negative to the left. She is breakaway weakness to testing the right biceps and grasp compared to 5 5 on the left. Results & Data ([facility]) Vital Signs (Past 12 Hours) Vital Signs Temp Pulse Pulse Resp BP Pulse Ox 07/20/21 07:28 36.4 C L 61 16 103/65 91 07/20/21 03:13 36.5 C 66 16 129/83 96 07/20/21 01:51 72 16 114/64 99 Code Status & VTE Plan VTE Prophylaxis Plan VTE Prophylaxis will be ordered: Yes
--- NOTE | 2021-07-20 16:52 | Anesthesiology Consultation ---
Date of Service July 20, 2021 Assessment & Plan (1) Encounter for pre-operative examination: Chart Review Chart Review: Acceptable Risk for Surgery and Patient NOT seen in Pre Admission Testing Consults Requested none History Surgery Operation Date: 07/21/21 07:00 Proposed Procedures p C5-C6 Anterior Cervical Discectomy Fusion - Tee Ramos DO Height/Weight Height: 5 ft 6 in Weight: 68.9 kg Allergies Allergy/AdvReac Type Severity Reaction Status Date / Time chlorhexidine Allergy Rash Verified 07/01/20 08:59 Medications Home Medications Medication Instructions Recorded Confirmed Last Taken duloxetine 60 mg capsule,delayed 60 mg PO QAM 06/11/20 07/20/21 07/01/20 07:00 release (Cymbalta) ibuprofen 200 mg tablet (Advil) 400 mg PO Q6H PRN 06/11/20 07/20/21 Unknown pregabalin 50 mg capsule (Lyrica) 50 mg PO TID 06/11/20 07/20/21 07/01/20 07:00 trazodone 150 mg tablet 150 mg PO HS 06/11/20 07/20/21 06/30/20 23:30 linaclotide 72 mcg capsule 72 mcg PO DAILY 07/20/21 07/20/21 Unknown (Linzess) Active Medications Generic Name Dose Route Start Last Admin Trade Name Freq PRN Reason Stop Dose Admin Duloxetine HCl 60 mg 07/20/21 09:00 07/20/21 07:30 Duloxetine Hcl 60 Mg Cap PO 08/19/21 08:59 60 mg QAM JONELLE Administration Hydromorphone HCl 1 mg 07/20/21 02:13 07/20/21 16:48 Hydromorphone Inj 1 Mg/Ml Syringe IV 08/03/21 02:12 1 mg Q3H PRN Administration severe pain (scale 7-10) Pregabalin 50 mg 07/20/21 09:00 07/20/21 13:31 Pregabalin 50 Mg Cap PO 08/19/21 08:59 50 mg TID JONELLE Administration Past Medical History Medical History Anxiety Chronic back pain LOWER BACK Depression Migraine HX Past Family History Family History Father Diabetes Grandmother (Maternal) Diabetes Past Surgical History Surgical History Fusion of spine CERVICAL-07/01/20 [facility] History of bilateral tubal ligation History of colposcopy History of urinary tract surgery urethral sling History of vaginal surgery anterior and posterior repair Social History Smoking Status: Never smoker tobacco type: smokeless tobacco Smoking cigarettes per day: VAPES DAILY Hx Alcohol Use: No Alcohol type: beer, wine and hard liquor alcohol intake frequency: holidays/special occasions only Hx Substance Use: No substance use type: does not use Physical Exam Vital Signs Last Vital Signs Temp 36.6 C 07/20/21 15:00 Pulse 62 07/20/21 15:00 Resp 16 07/20/21 15:00 BP 105/69 07/20/21 15:00 Pulse Ox 92 07/20/21 15:00 Testing Electrocardiogram Date: 05/19/21 Findings: + NSR @ (64) Chest X-Ray Date: 05/19/21 Findings: + NAD
[2021-07-20] MEDS: traZODone HCL 50 MG TAB PO SCH (20:03)
[2021-07-20] MEDS: MoRPHine SULFATE 4 MG/ML 1 ML CARP\\VIAL IV PRN (22:49)
[2021-07-21] MEDS: LACTATED RINGER'S 1,000 ML IV SCH ×3 (00:33→17:51)
[2021-07-21] MEDS: MoRPHine SULFATE 4 MG/ML 1 ML CARP\\VIAL IV PRN ×3 (03:57→22:44)
[2021-07-21 07:17] LABS: Basophils # (auto) 0.03 K/uL (0-0.2); Basophils % (auto) 0.4 %; Eosinophils # (auto) 0.31 K/uL (0-0.5); Eosinophils % (auto) 4.3 %; Hematocrit (blood only) 35.2 % (37-47); Hemoglobin 11.2 g/dL (12.0-16.0); Immature Granulocytes # (auto) 0.01 K/uL (0.00-0.02); Immature Granulocytes % (auto) 0.1 %; Lymphocytes # (auto) 2.41 K/uL (1.2-3.4); Lymphocytes % (auto) 33.6 %; Mean Corpuscular Hemoglobin 30.2 pg (25-34); Mean Corpuscular Hgb Conc 31.8 g/dL (32-36); Mean Corpuscular Volume 94.9 fL (80-100); Mean Platelet Volume 10.4 fL (7.4-10.4); Monocytes # (auto) 0.45 K/uL (0.11-0.59); Monocytes % (auto) 6.3 %; Neutrophils # (auto) 3.97 K/uL (1.4-6.5); Neutrophils % (auto) 55.3 %; Platelet Count 364 K/uL (130-400); RDW Coefficient of Variation 13.2 % (11.5-14.5); Red Blood Count 3.71 M/uL (4.2-5.4); White Blood Count 7.18 K/uL (4.8-10.8)
[2021-07-21 07:38] LABS: Pregnancy Test, Serum Negative (Negative)
[2021-07-21] MEDS: PREGABALIN 50 MG CAP PO SCH ×3 (07:45→20:51)
[2021-07-21] MEDS: DULoxetine HCL 60 MG CAP PO SCH (07:46)
[2021-07-21] MEDS: linaCLOtide 72 MCG CAPSULE PO SCH (07:46)
[2021-07-21 07:48] LABS: BUN Creatinine Ratio 26.3 (10-20); Calcium 8.5 mg/dl (8.5-10.1); Creatinine Clr Calc Pharmacy 96.8 ml/min; Est GFR (African American) 121.6 ml/min; Est GFR (Non-African American) 104.9 ml/min; Potassium 4.3 mmol/L (3.5-5.1)
--- NOTE | 2021-07-21 11:54 | Hospitalist Progress Note ---
Date of Service July 21, 2021 Assessment & Plan (1) Cervical radiculopathy: Plan: This is a 46-year-old female who is otherwise healthy who presented to ER due to persistent neck pain with radiation of numbness and tingling to right upper extremity. She has a prior C3-C4 ACDF approximately [address] Ramos. Evidence of a large disc herniation at C5-C6 Appreciated Ortho input and recommendation for anterior cervical discectomy and fusion C5-C6 on 07/21/2021 Pain management per orthopedics Continue NPO, resume LR @ midnight (2) Myelopathy concurrent with and due to spinal stenosis of cervical region: Plan: This is a 46-year-old female who is otherwise healthy who presented to ER due to persistent neck pain with radiation of numbness and tingling to right upper extremity. She has a prior C3-C4 ACDF approximately [address] Ramos. Evidence of a large disc herniation at C5-C6 Appreciated Ortho input and recommendation for anterior cervical discectomy and fusion C5-C6 on 07/21/2021 Pain management per orthopedics Continue NPO, resume LR @ midnight Back pain with lumbar radiculopathy Complains to have back pain with radiation to the left lower extremity Straight leg is painful Minimal numbness involving toes of the left foot There was a 19 x 7 mm broad-based central/right paracentral disc protrusion at L5-S1 on 12/08/2020 orthopedics on board Plan: Anxiety/Depression mood stable Chronic Constipation continue linzess DVT ppx: per surgery Dispo: awaiting surgery FULL CODE PCP Dr. Huang Admission and Anticipated Discharge Date Admission Date: July 19, 2021 Supervising Physician Co-Signing Physician Notes Attending addendum The patient was seen and examined in medical floor She complains of neck pain but denies any other symptoms She has been waiting for the proposed surgery this afternoon On examination Anxious but hemodynamically stable Clear chest HeartS1-S2 regular Abdomen benign. Extremities-negative for any edema His labs and imaging studies reviewed Has cervical radiculopathy and will have surgery as advised by orthopedic surgeon She will go for surgery this afternoon Agree with assessment and plan as outlined above by SHEFALI Murillo DR Subjective Patient was seen and examined in room 316. Follow-up cervical radiculopathy with associated numbness to right hand. She is currently n.p.o. and plan is to undergo surgical fixation today by Dr. Ramos. She continues to complain of neck pain with radicular symptoms to right fingers 3 through 5. She denies fever, chills, sweats, chest pain, shortness of breath, nausea vomiting, abdominal pain. Review of Systems Review of Systems: All systems reviewed & are unremarkable except as noted in HPI & below Physical Exam Physical Exam: Gen: WD/WN, NAD, A&O x3 HEENT: Normocephalic, atraumatic, conjunctivae moist, sclerae anicteric, mucous membranes moist. Lung: Clear to Auscultation bilaterally, no wheezes/rales/rhonchi Heart: Regular rate, regular rhythm, no murmurs, rubs, or gallops Abdomen: Soft, NT, ND +BS x 4 Extremities: No edema Skin: Warm, no rash, negative turgor. Results & Data Results & Data ([facility]) Vital Signs (Past 12 Hours) Vital Signs Temp Pulse Resp BP Pulse Ox 07/21/21 09:02 93/57 L 07/21/21 07:13 36.5 C 55 L 16 80/52 L 93 07/21/21 00:11 36.7 C 75 20 102/66 98 Laboratory Results Short CBC 07/21/21 Range/Units 06:33 WBC 7.18 (4.8-10.8) K/uL Hgb 11.2 L (12.0-16.0) g/dL Hct 35.2 L (37-47) % Plt Count 364 (130-400) K/uL BMP 07/21/21 06:33 Sodium 140 Potassium 4.3 Chloride 110 H Carbon Dioxide 29 BUN 18 Creatinine 0.68 Glucose 105 H Calcium 8.5 Medications Administered Current Inpatient Medications Acetaminophen (Acetaminophen 500 Mg Tab) 1,000 mg PO Q8H PRN PRN Reason: MILD Pain Scale 1,2,3 & Pre PT Stop: 08/19/21 02:12 Al Hydrox/Mg Hydrox/Simethicone (Aluminum/Magnesium Susp 30 Ml Udc) 30 ml PO Q6H PRN PRN Reason: Dyspepsia Stop: 08/19/21 02:12 Bisacodyl (Bisacodyl 10 Mg Supp) 10 mg MN DAILY PRN PRN Reason: Constipation Stop: 08/20/21 22:33 Diphenhydramine HCl (Diphenhydramine Capsule 25 Mg Cap) 25 mg PO Q6H PRN PRN Reason: Allergic Rhinitis/Insomnia Stop: 08/19/21 02:12 Last Admin: 07/20/21 20:03 Dose: 25 mg Documented by: Duloxetine HCl (Duloxetine Hcl 60 Mg Cap) 60 mg PO QAM [facility] Stop: 08/19/21 08:59 Last Admin: 07/21/21 07:46 Dose: 60 mg Documented by: Hydromorphone HCl (Hydromorphone Inj 0.5 Mg/0.5 Ml Syr) 0.5 mg IV Q3H PRN PRN Reason: MOD pain (scale 4-6) & Pre PT Stop: 08/03/21 02:12 Hydromorphone HCl (Hydromorphone Inj 1 Mg/Ml Syringe) 1 mg IV Q3H PRN PRN Reason: severe pain (scale 7-10) Stop: 08/03/21 02:12 Last Admin: 07/20/21 16:48 Dose: 1 mg Documented by: Hydroxyzine HCl (Hydroxyzine Hcl 25 Mg Tab) 25 mg PO Q8H PRN PRN Reason: Anxiety Stop: 08/19/21 02:12 Promethazine HCl 12.5 mg/ (Sodium Chloride) 50.5 mls @ 202 mls/hr IV Q6H PRN PRN Reason: Nausea &/or Vomiting Stop: 08/19/21 02:12 Acetaminophen (Ofirmev) 1,000 mg in 100 mls @ 400 mls/hr IV Q8H PRN PRN Reason: Pain Rating 1-3 & Pre PT Stop: 07/23/21 02:12 Lorazepam (Ativan) 0.5 mg in 1 mls @ 1 mls/min IV Q8H PRN PRN Reason: Sedation/Anxiety Stop: 08/19/21 02:12 Lactated Ringer's (Lr) 1,000 mls @ 75 mls/hr IV .[id number] [facility] Stop: 08/20/21 00:00 Last Admin: 07/21/21 00:33 Dose: 75 mls/hr Documented by: Linaclotide (Linaclotide 72 Mcg Capsule) 72 mcg PO DAILY [facility] Stop: 08/20/21 08:59 Last Admin: 07/21/21 07:46 Dose: 72 mcg Documented by: Lorazepam (Lorazepam 0.5 Mg Tab) 0.5 mg PO Q8H PRN PRN Reason: sedation/anxiety Stop: 08/19/21 02:12 Magnesium Hydroxide (Magnesium Hydroxide Susp 30 Ml Udc) 30 ml PO Q24H PRN PRN Reason: Constipation Stop: 08/19/21 02:12 Metoclopramide HCl (Metoclopramide Hcl Inj 5 Mg/Ml 2 Ml Vial) 10 mg IV Q6H PRN PRN Reason: Nausea &/or Vomiting Stop: 08/19/21 02:12 Morphine Sulfate (Morphine Sulfate 4 Mg/Ml 1 Ml Carp\Vial) 4 mg IV Q3H PRN PRN Reason: Pain Stop: 08/03/21 20:18 Last Admin: 07/21/21 03:57 Dose: 4 mg Documented by: Naloxone HCl (Naloxone Hcl 0.4 Mg/1 Ml Vial/Carp) 0.1 mg IV Q5M PRN PRN Reason: Oversedation/respiratory dep Stop: 08/19/21 02:12 Ondansetron HCl (Ondansetron Inj 2 Mg/Ml 2 Ml Vial) 4 mg IV Q6H PRN PRN Reason: Nausea &/or Vomiting Stop: 08/19/21 02:12 Ondansetron HCl (Ondansetron 4 Mg Od Tab) 4 mg PO Q6H PRN PRN Reason: Nausea Stop: 08/19/21 02:12 Oxycodone HCl (Oxycodone Hcl Ir 5 Mg Tab (Immediate Release)) 5 - 10 mg PO Q4H PRN PRN Reason: mod to severe pain Stop: 08/03/21 02:12 Pregabalin (Pregabalin 50 Mg Cap) 50 mg PO TID JONELLE Stop: 08/19/21 08:59 Last Admin: 07/21/21 07:45 Dose: 50 mg Documented by: Sodium Biphosphate/Sodium Phosphate (Sod Phosphate/Sod Biphosphate Enema 132 Ml Btl) 132 ml MN ONE PRN PRN Reason: Constipation Stop: 08/19/21 02:12 Tramadol HCl (Tramadol Hcl 50 Mg Tablet) 50 - 100 mg PO Q4H PRN PRN Reason: Moderate-Severe pain & Pre PT Stop: 08/19/21 02:12 Trazodone HCl (Trazodone Hcl 50 Mg Tab) 150 mg PO HS JONELLE Stop: 08/19/21 20:59 Last Admin: 07/20/21 20:03 Dose: 150 mg Documented by:
[2021-07-21] MEDS ORDERED: MIDAZOLAM HCL 1 MG/ML 2ML VIAL ONE (13:41)
[2021-07-21] MEDS ORDERED: DEXAMETHASONE SOD INJ 4 MG/ML VIAL ONE (13:42)
[2021-07-21] MEDS ORDERED: LIDOCAINE 2% 2 ML VIAL/AMP(20MG/ML) INFIL ONE (13:42)
[2021-07-21] MEDS ORDERED: fentaNYL citrate 100 MCG/2 ML VIAL ONE ×2 (13:42→14:59)
[2021-07-21] MEDS ORDERED: PROPOFOL IV EMULSION 10 MG/ML 20 ML VIAL IV ONE (13:42)
[2021-07-21] MEDS ORDERED: ONDANSETRON INJ 2 MG/ML 2 ML VIAL ONE (13:42)
[2021-07-21] MEDS ORDERED: SUCCINYLCHOLINE CHLORIDE 20 MG/ML 10 ML VIAL IV ONE (13:42)
[2021-07-21] MEDS ORDERED: ROCURONIUM BROMIDE 10 MG/ML 5 ML VIAL IV ONE (13:42)
--- NOTE | 2021-07-21 13:54 | History & Physical Bridge Note ---
Date of Service July 21, 2021 History & Physical Bridge Note I have examined the patient, reviewed the History & Physical and in the interval since the performance of the History & Physical I have noted the following changes of clinical significance: no changes noted C5-C6 anterior cervical discectomy and fusion
[2021-07-21] MEDS ORDERED: ATROPINE SULFATE 0.1 MG/ML 10ML SYR IV PRN (14:06)
[2021-07-21] MEDS ORDERED: PROMETHAZINE HCL 6.25 MG in SODIUM CHLORIDE 0.9% 50 ML IV PRN (14:06)
[2021-07-21] MEDS ORDERED: ONDANSETRON INJ 2 MG/ML 2 ML VIAL IV PRN ×2 (14:06→17:34)
[2021-07-21] MEDS ORDERED: ceFAZolin 2,000 MG/15 ML IV PUSH IV ONE (14:16)
[2021-07-21] MEDS ORDERED: ceFAZolin 2000MG 2,000 MG/15 ML SYR IV ONE (14:30)
[2021-07-21] MEDS ORDERED: GLYCOPYRROLATE 0.2 MG/ML VIAL ONE (14:56)
[2021-07-21] MEDS ORDERED: NEOSTIGMINE METHYLSULFATE 1 MG/ML 10ML VIAL ONE (14:56)
[2021-07-21] MEDS ORDERED: PHENYLEPHRINE 100MCG/ML 5ML SYR ONE (15:38)
[2021-07-21] MEDS ORDERED: ePHEDrine sulfate 50 MG/ML SYR ONE (15:38)
[2021-07-21] MEDS ORDERED: FLOSEAL HEMOSTATIC MATRIX 10ML TOP ONE (15:49)
--- NOTE | 2021-07-21 15:51 | Operative Report ---
Post Operative Report Pre & Post Diagnosis Operation Date: 07/21/21 07:00 Pre-Op Diagnosis: Cervical radiculopathy Post-Op Diagnosis: Cervical radiculopathy I identified the patient and participated in the time-out.: Yes Procedure Operation Date: 07/21/21 07:00 Actual Procedures #1 anterior cervical discectomy with bilateral foraminotomies C5-C6. #2 ante rior cervical arthrodesis C5-C6. #3 placement of globus coalition interbody cage 8 mm in height filled with I factor C5-C6. Surgeon Tee Ramos, DO Mold Design Engineer None Estimated Blood Loss 10 Findings Consistent with Post-Op Diagnosis Specimens None Indications This is a 46-year-old female who presents with marked upon status consistent neck and arm pain and is here for surgical invention. Description of Procedure Patient was met with identified informed consent obtained. Patient was then taken to the operative suite underwent ablation placed in a supine position the head De Oliveira head of integrated media. All bony prominences well-padded eyes inspected to ensure no external pressure placed upon the. This point the anterior cervical spine was prepped and draped in a sterile fashion. With the assistance of fluoroscopy identified the C5-C6 disc base and a transverse incision was placed on the right anterior aspect of the cervical spine overlying this region. Blunt dissection with the assistance of bipolar electrocautery was then performed down to and exposing the anterior cervical spine at C5-C6. I verified my position with fluoroscopy. A complete discectomy was then performed to the uncovertebral's bilaterally. Zachary distracting pins were utilized to assist in visualization. Removed all posterior annular fibers longitudinal ligament bilateral foraminotomies performed. Endplates were then burred to subcortical bleeding bone and a 8 mm globus coalition cage filled with I factor was tapped in position and screwed into place with fluoroscopic visualization. The incision was then copiously irrigated explored to ensure no damage to surrounding structures remaining bleeding. 10 round ALFREDO drain inserted. I ncision was then closed with 2 Vicryl in a fashion of 4 Monocryl for fascial closure. Steri-Strip sterile dressings placed. Patient will continue PACU stable condition. Please note spinal cord monitoring was utilized at the procedure no changes noted. I attest to the content of the Intraoperative Record and any orders documented therein. Any exceptions are noted below.
--- NOTE | 2021-07-21 15:59 | Fluoroscopy Report ---
FL cervical 2-3V CLINICAL HISTORY: C5-6 ACDF COMPARISON STUDY: None. FLUOROSCOPY TIME: 8 seconds. FINDINGS: 2 fluoroscopic spot images of the cervical spine were submitted for review. Interval C5-C6 anterior cervical discectomy and fusion. The hardware appears intact. An endotracheal tube is noted. A surgical sponge is seen anterior to the surgical site. Evidence for prior C3-C4 ACDF. IMPRESSION: Fluoroscopic assistance provided for C5-C6 ACDF. ACT 112: Negative or not required by law. Electronically signed by: Noe Hearn M.D. 07/21/2021 3:58 PM
[2021-07-21] MEDS: MoRPHine SULFATE 10 MG/ML CARP/VIAL IV PRN ×3 (16:16→16:30)
--- NOTE | 2021-07-21 17:10 | Anesthesiology Progress Note ---
Date of Service July 21, 2021 Anesthesia Post Procedure Vital Signs Vital Signs: Temp Pulse Pulse Resp BP Pulse Ox 07/21/21 17:05 75 14 101/60 97 07/21/21 16:55 61 12 106/66 97 07/21/21 16:45 64 14 105/65 97 07/21/21 16:35 78 16 108/67 98 07/21/21 16:25 73 12 112/57 L 99 07/21/21 16:15 73 12 110/58 L 98 07/21/21 16:07 36.4 C L 80 16 95/70 L 97 07/21/21 13:05 36.6 C 55 L 18 109/63 98 07/21/21 09:02 93/57 L 07/21/21 07:13 36.5 C 55 L 16 80/52 L 93 07/21/21 00:11 36.7 C 75 20 102/66 98 Pain Intensity Posterior Neck: Pain Intensity: 7 Neck: Pain Intensity: 3 Transfer of Care Handoff Completed per policy Notes Mental Status: alert / awake / arousable and participated in evaluation Patient Amnestic to Procedure: Yes Nausea / Vomiting: adequately controlled Pain: adequately controlled Airway Patency, RR, SpO2: stable & adequate BP & HR: stable & adequate Hydration State: stable & adequate Anesthetic Complications: no major complications apparent and Pt Satisfied with anesthetic care
[2021-07-21] MEDS ORDERED: DO NOT ADMINISTER FLU VACCINE PRN (17:34)
[2021-07-21] MEDS ORDERED: hydrOXYzine HCl 25 MG TAB PO PRN (17:34)
[2021-07-21] MEDS ORDERED: PROMETHAZINE HCL 12.5 MG in SODIUM CHLORIDE 0.9% 50 ML IV PRN (17:34)
[2021-07-21] MEDS ORDERED: MAGNESIUM HYDROXIDE SUSP 30 ML UDC PO PRN (17:34)
[2021-07-21] MEDS ORDERED: diphenhydrAMINE Capsule 25 MG CAP PO PRN (17:34)
[2021-07-21] MEDS ORDERED: ALUMINUM/MAGNESIUM SUSP 30 ML UDC PO PRN (17:34)
[2021-07-21] MEDS ORDERED: NALOXONE HCL 0.4 MG/1 ML VIAL/CARP IV PRN (17:34)
[2021-07-21] MEDS ORDERED: LORazepam 0.5 MG/1 ML VIAL IV PRN (17:34)
[2021-07-21] MEDS ORDERED: RACEPINEPHRINE 2.25% NEBU SOLN 0.5 ML VIAL INH PRN (17:34)
[2021-07-21] MEDS ORDERED: dexAMETHasone 8 MG in SYRINGE 0 ML IV PRN (17:34)
[2021-07-21] MEDS ORDERED: SOD PHOSPHATE/SOD BIPHOSPHATE ENEMA 132 ML BTL PR PRN (17:34)
[2021-07-21] MEDS ORDERED: ACETAMINOPHEN 500 MG TAB PO PRN (17:34)
[2021-07-21] MEDS ORDERED: DO NOT ADMINISTER PNEUMOCOCCAL VACCINE PRN (17:34)
[2021-07-21] MEDS ORDERED: ONDANSETRON 4 MG OD TAB PO PRN (17:34)
[2021-07-21] MEDS ORDERED: LORazepam 0.5 MG TAB PO PRN (17:34)
[2021-07-21] MEDS ORDERED: METOCLOPRAMIDE HCL INJ 5 MG/ML 2 ML VIAL IV PRN (17:34)
[2021-07-21] MEDS ORDERED: bisacodyL 10 MG SUPP PR PRN ×2 (17:34→22:34)
[2021-07-21] MEDS ORDERED: FAMOTIDINE 20 MG TAB PO PRN (17:34)
[2021-07-21] MEDS: ACETAMINOPHEN 1,000 MG/100 ML VIAL IV PRN (18:20)
[2021-07-21] MEDS: ceFAZolin 1000MG 1,000 MG/7.5 ML SYR IV SCH (20:51)
[2021-07-21] MEDS: traZODone HCL 50 MG TAB PO SCH (20:51)
[2021-07-21] MEDS ORDERED: DOCUSATE SODIUM/SENNA 50/8.6MG TAB PO SCH (21:00)
[2021-07-22] MEDS: oxyCODONE HCL IR 5 MG TAB (IMMEDIATE RELEASE) PO PRN ×2 (01:28→07:07)
[2021-07-22] MEDS: ACETAMINOPHEN 1,000 MG/100 ML VIAL IV PRN (01:28)
[2021-07-22] MEDS: MoRPHine SULFATE 4 MG/ML 1 ML CARP\\VIAL IV PRN ×3 (02:45→12:04)
[2021-07-22] MEDS: LACTATED RINGER'S 1,000 ML IV SCH (05:24)
[2021-07-22 05:55] LABS: Basophils # (auto) 0.01 K/uL (0-0.2); Basophils % (auto) 0.1 %; Hematocrit (blood only) 34.1 % (37-47); Hemoglobin 11.2 g/dL (12.0-16.0); Immature Granulocytes # (auto) 0.01 K/uL (0.00-0.02); Immature Granulocytes % (auto) 0.1 %; Lymphocytes # (auto) 0.92 K/uL (1.2-3.4); Lymphocytes % (auto) 9.2 %; Mean Corpuscular Hemoglobin 30.9 pg (25-34); Mean Corpuscular Hgb Conc 32.8 g/dL (32-36); Mean Corpuscular Volume 94.2 fL (80-100); Monocytes # (auto) 0.39 K/uL (0.11-0.59); Monocytes % (auto) 3.9 %; Neutrophils # (auto) 8.62 K/uL (1.4-6.5); Neutrophils % (auto) 86.7 %; Platelet Count 350 K/uL (130-400); RDW Standard Deviation 45.1 fL (36.4-46.3); Red Blood Count 3.62 M/uL (4.2-5.4); White Blood Count 9.95 K/uL (4.8-10.8)
[2021-07-22] MEDS ORDERED: POLYETHYLENE (MIRALAX) 17 GM PACK PO SCH (06:00)
[2021-07-22] MEDS: ceFAZolin 1000MG 1,000 MG/7.5 ML SYR IV SCH (06:11)
[2021-07-22 06:37] LABS: BUN Creatinine Ratio 17.2 (10-20); Calcium 8.7 mg/dl (8.5-10.1); Est GFR (African American) 120.4 ml/min; Est GFR (Non-African American) 103.9 ml/min; Potassium 3.7 mmol/L (3.5-5.1)
[2021-07-22] MEDS: PREGABALIN 50 MG CAP PO SCH (07:07)
[2021-07-22] MEDS: linaCLOtide 72 MCG CAPSULE PO SCH (07:07)
[2021-07-22] MEDS: DULoxetine HCL 60 MG CAP PO SCH (07:07)
[2021-07-22] MEDS ORDERED: dexAMETHasone 6 MG in SYRINGE 0 ML IV SCH (09:00)
--- NOTE | 2021-07-22 11:26 | Discharge Summary ---
Date of Service July 22, 2021 Admission HPI Per Admitting Provider This is a 46-year-old female has had a marked decline in status over the past several months with worsening neck and right arm radiculopathy. Principal Diagnosis Cervical disc condition with radiculopathy Discharge Data Allergies Allergy/AdvReac Type Severity Reaction Status Date / Time hydromorphone [From Dilaudid] Allergy Mild Rash Verified 07/20/21 20:19 chlorhexidine Allergy Rash Verified 07/01/20 08:59 Consultations 07/19/21 22:32 ED Decision to Admit Stat 07/20/21 02:13 Consult Internal Medicine Routine Procedures Performed Operation Date: 07/21/21 07:00 Actual Procedures p C5-C6 Anterior Cervical Discectomy Fusion, Spinal Cord Monitoring(Not Applicable) - Tee Ramos DO Ordered Studies 07/21/21 [place] cervical 2-3V Routine Hospital Course (1) Cervical radiculopathy: Patient was admitted with significant cervicalgia and radiculopathy. She underwent surgery the next day tolerates well and marked improvement of her pain. Excellent strength testing. ALFREDO drain decreasing probably. Subsequent discharge home. Discharge orders instructions were on the chart for further review. Total Time Total Time Spent Total Time Spent (In Minutes): 20 minutes Discharge Plan Discharge Items Patient Disposition: Home - Self-Care Reason For Visit: CERVICAL RADICULOPATHY Discharge Diagnosis: Cervical disc herniation with radiculopathy Activity: As commented below Non-emergency contact: Primary Care Provider Call non-emergency contact if: you have any medication questions Follow-up/Referrals: Silvano Huang [Primary Care Provider] - Diet: Regular Addtl Attending Provider Instructions: ACTIVITY RECOMMENDATIONS: SELF CARE INSTRUCTIONS AFTER CERVICAL FUSIONS 1. No smoking. Smoking drastically decreases the chance of a solid fusion. 2. No bending, lifting more than 5 pounds, or twisting (roll like a log when turning in bed). 3. You may shower 3 days after surgery. Thoroughly dry wound. Do not soak in the tub. 4. Cervical collar: Must be worn at all times including sleeping. You may remove the brace only to bath, eat and if you are sitting in a recliner. 5. Please walk as much as you can for exercise. Gradually increase the distance that you walk as your endurance increases. SPECIAL CARE INSTRUCTIONS: VERY IMPORTANT TO READ AND REVIEW A. Do not take any anti-inflammatory medications (i.e. Indocin, Advil, Aspirin, Naprosyn, Aleve, Motrin, etc.) as these may inhibit the chance of a solid fusion. Tylenol is okay to take. B. Your surgical incision has been closed with a cosmetic suture under the skin that will dissolve in about 6 weeks. In 14 days, you can use a pair of clean scissors and cut the suture that is left outside of the skin at the ends of your incision. C. Complications are uncommon, but please contact us if you have any signs or symptoms of: 1. wound infection (fever higher than 102.5 degrees F, redness, separation of wound, drainage, or increasing pain from the incision) 2. blood clots in legs (pain, swelling, redness and warmth in legs) 3. urinary tract infection (fever higher than 102.5 degrees, burning upon urination or increased frequency of urination) 4. nerve problems (inability to walk on your toes or heels, numbness, loss of bowel or bladder control) 5. any other symptoms that concern you. D. Please call the office at if you have any concerns or questions about your operation or recovery. MANAGING PAIN AFTER SPINAL SURGERY 1. Narcotic medication is intended for short-term use and will be provided for surgical pain. Surgical pain usually lasts for a period of 4-6 weeks. Narcotic medication includes Percocet, Vicodin, Darvocet, Tylenol #3 or Lortab. 2. Longer-term pain is more appropriately treated with non-narcotic medication such as Tylenol ES. 3. Muscle spasm is not appropriately treated with narcotics. Muscle relaxers such as Soma, Flexeril or Skelaxin can be used along with Tylenol ES. 4. Remember that we all live with some "aches and pains". This is not unusual or uncommon after an injury or as we get older. 5. We will provide appropriate medication within the normal guidelines of their prescribed use. We will also be very cautious and aware of potential abuse and extended duration of patients' medication needs. 6. Please allow 2-3 days to process refills. Prescriptions will not be mailed but must be picked up at the office. FOLLOW UP VISIT: Keep your scheduled follow-up appointment. Any questions, please call the office at . Pending Studies at Discharge: No Stand-Alone Forms: My [facility], Smoking Cessation Medications and DC Order Prescriptions: New tramadol 50 mg tablet 50 mg PO Q6H PRN (Reason: pain, moderate) Qty: 20 RF: 0 oxycodone 5 mg tablet 5 mg PO Q6H PRN (Reason: pain, severe) Qty: 20 RF: 0 cyclobenzaprine 10 mg tablet 10 mg PO TID PRN (Reason: muscle spasm) Qty: 20 RF: 0 Continued trazodone 150 mg Tablet 150 mg PO HS RF: 0 duloxetine [Cymbalta] 60 mg Capsule,Delayed Release(Dr/Ec) 60 mg PO QAM RF: 0 pregabalin [Lyrica] 50 mg Capsule 50 mg PO TID RF: 0 Linzess 72 mcg Capsule 72 mcg PO DAILY RF: 0 Discontinued ibuprofen [Advil] 200 mg Tablet 400 mg PO Q6H PRN (Reason: Pain) RF: 0 Discharge Orders: Discharge Order (Routine); Ordered 07/22/21 Ordered By: Tee Ramos Admission Data Admit Date/Time: 07/19/21 22:37 Attending Provider: Tee Ramos Admit Provider: Tee Ramos Primary Care Provider: Silvano Huang Other Providers: Phyllis Castro ; Hi Reyes ; Tee Ramos ; Zahra Gann
--- NOTE | 2021-07-22 11:36 | Hospitalist Progress Note ---
Date of Service July 22, 2021 Assessment & Plan (1) Cervical radiculopathy: Plan: n (2) Myelopathy concurrent with and due to spinal stenosis of cervical region: Plan: This is a 46-year-old female who is otherwise healthy who presented to ER due to persistent neck pain with radiation of numbness and tingling to right upper extremity. She has a prior C3-C4 ACDF approximately [address] Ramos. Evidence of a large disc herniation at C5-C6 Appreciated Ortho input and recommendation for anterior cervical discectomy and fusion C5-C6 on 07/21/2021 Pain management per orthopedics Operation Date: 07/21/21 07:00 Actual Procedures #1 anterior cervical discectomy with bilateral foraminotomies C5-C6. #2 anterior cervical arthrodesis C5-C6. #3 placement of globus coalition interbody cage 8 mm in height filled with I factor C5-C6. POD #1 plan for d/c today no acute complaints/concerns other than post op lobo Back pain with lumbar radiculopathy Complains to have back pain with radiation to the left lower extremity Straight leg is painful Minimal numbness involving toes of the left foot There was a 19 x 7 mm broad-based central/right paracentral disc protrusion at L5-S1 on 12/08/2020 orthopedics on board Plan: Anxiety/Depression mood stable Chronic Constipation continue linzess DVT ppx: per surgery Dispo: d/c today FULL CODE PCP Dr. Huang Thank you for this consultation. We will follow the patient with you during their hospital stay. You can reach a member of the [facility] Hospitalist Team 21/03 via hospitalist role on tiger text. Patient was seen and examined in collaboration with Dr. Armas, please see addendum Admission and Anticipated Discharge Date Admission Date: July 19, 2021 Supervising Physician Co-Signing Physician Notes 07/22/2021 Attending addendum The patient was seen and examined in medical floor She is a status post cervical discectomy and has been feeling much better with minimal pain in the neck Her radiculopathy pain has disappeared On examination No apparent distress at rest Hemodynamically stable Chestclear HeartS1-S2, regular Abdomenbenign Extremitiesnegative for any edema Her labs reviewed Medically stable to be discharged following C5-C6 anterior cervical discectomy and fusion Agree with assessment and plan as outlined above by Phyllis armas Subjective Patient was seen and examined in room 316. Follow-up cervical radiculopathy with associated numbness to right hand. She is s/p ACDF post op day #1. Complains of neck pain. Feels current pain regimen not enough. Denies f/c/s, chest pain, sob, n/v/d, abd pain. She is passing flatus, no BM yet. Review of Systems Review of Systems: All systems reviewed & are unremarkable except as noted in HPI & below Physical Exam Physical Exam: Gen: WD/WN, NAD, A&O x3 HEENT: Normocephalic, atraumatic, conjunctivae moist, sclerae anicteric, mucous membranes moist. NECK: C collar in place, dressing cdi Lung: Clear to Auscultation bilaterally, no wheezes/rales/rhonchi Heart: Regular rate, regular rhythm, no murmurs, rubs, or gallops Abdomen: Soft, NT, ND +BS x 4 Extremities: No edema Skin: Warm, no rash, negative turgor. Results & Data Results & Data ([facility]) Vital Signs (Past 12 Hours) Vital Signs Temp Pulse Pulse Resp BP Pulse Ox Pulse Ox 07/22/21 10:54 36.6 C 61 16 117/72 97 97 07/22/21 09:09 36.4 C L 51 L 16 122/78 96 94 07/22/21 07:27 52 L 16 94 07/22/21 06:59 36.4 C L 54 L 16 106/66 93 07/22/21 04:40 36.7 C 55 L 16 105/66 93 07/22/21 03:14 63 14 95 07/22/21 02:30 36.5 C 61 16 95/60 L 95 07/22/21 00:35 36.6 C 69 16 101/66 93 Laboratory Results Short CBC 07/22/21 Range/Units 05:39 WBC 9.95 (4.8-10.8) K/uL Hgb 11.2 L (12.0-16.0) g/dL Hct 34.1 L (37-47) % Plt Count 350 (130-400) K/uL BMP 07/22/21 05:39 Sodium 138 Potassium 3.7 Chloride 107 Carbon Dioxide 25 BUN 12 Creatinine 0.70 Glucose 132 H Calcium 8.7 Medications Administered Current Inpatient Medications Acetaminophen (Acetaminophen 500 Mg Tab) 1,000 mg PO Q8H PRN PRN Reason: MILD Pain Scale 1,2,3 & Pre PT Stop: 08/20/21 17:33 Al Hydrox/Mg Hydrox/Simethicone (Aluminum/Magnesium Susp 30 Ml Udc) 30 ml PO Q6H PRN PRN Reason: Dyspepsia Stop: 08/20/21 17:33 Bisacodyl (Bisacodyl 10 Mg Supp) 10 mg WI DAILY PRN PRN Reason: Constipation Stop: 08/20/21 17:33 Diphenhydramine HCl (Diphenhydramine Capsule 25 Mg Cap) 25 mg PO Q6H PRN PRN Reason: Allergic Rhinitis/Insomnia Stop: 08/20/21 17:33 Duloxetine HCl (Duloxetine Hcl 60 Mg Cap) 60 mg PO QAM JONELLE Stop: 08/19/21 08:59 Last Admin: 07/22/21 07:07 Dose: 60 mg Documented by: Epinephrine (Racepinephrine 2.25% Nebu Soln 0.5 Ml Vial) 0.5 ml INH NOW PRN PRN Reason: If stridor present Famotidine (Famotidine 20 Mg Tab) 20 mg PO Q12H PRN PRN Reason: Dyspepsia Stop: 08/20/21 17:33 Hydroxyzine HCl (Hydroxyzine Hcl 25 Mg Tab) 25 mg PO Q8H PRN PRN Reason: Anxiety Stop: 08/20/21 17:33 Dexamethasone 8 mg/ Syringe 2 mls @ 1 mls/min IV NOW PRN PRN Reason: If stridor present Promethazine HCl 12.5 mg/ (Sodium Chloride) 50.5 mls @ 202 mls/hr IV Q6H PRN PRN Reason: Nausea &/or Vomiting Stop: 08/20/21 17:33 Acetaminophen (Ofirmev) 1,000 mg in 100 mls @ 400 mls/hr IV Q8H PRN PRN Reason: Pain Rating 1-3 & Pre PT Stop: 07/24/21 17:33 Last Infusion: 07/22/21 01:49 Dose: Infused Documented by: Lorazepam (Ativan) 0.5 mg in 1 mls @ 1 mls/min IV Q8H PRN PRN Reason: Sedation/Anxiety Stop: 08/20/21 17:33 Dexamethasone 6 mg/ Syringe 1.5 mls @ 1 mls/min IV DAILY JONELLE Stop: 07/24/21 09:02 Last Admin: 07/22/21 07:08 Dose: 1 mls/min Documented by: Influenza Virus Vaccine Quadrival (Do Not Administer Flu Vaccine) 1 ea N/A PRN PRN PRN Reason: Notification Stop: 08/20/21 17:33 Linaclotide (Linaclotide 72 Mcg Capsule) 72 mcg PO DAILY JONELLE Stop: 08/20/21 08:59 Last Admin: 07/22/21 07:07 Dose: 72 mcg Documented by: Lorazepam (Lorazepam 0.5 Mg Tab) 0.5 mg PO Q8H PRN PRN Reason: sedation/anxiety Stop: 08/19/21 02:12 Last Admin: 07/22/21 04:26 Dose: 0.5 mg Documented by: Lorazepam (Lorazepam 0.5 Mg Tab) 0.5 mg PO Q8H PRN PRN Reason: Sedation/Anxiety Stop: 08/20/21 17:33 Magnesium Hydroxide (Magnesium Hydroxide Susp 30 Ml Udc) 30 ml PO Q24H PRN PRN Reason: Constipation Stop: 08/20/21 17:33 Metoclopramide HCl (Metoclopramide Hcl Inj 5 Mg/Ml 2 Ml Vial) 10 mg IV Q6H PRN PRN Reason: Nausea &/or Vomiting Stop: 08/20/21 17:33 Morphine Sulfate (Morphine Sulfate 4 Mg/Ml 1 Ml Carp\Vial) 4 mg IV Q4H PRN PRN Reason: severe pain Stop: 08/04/21 18:16 Last Admin: 07/22/21 07:56 Dose: 4 mg Documented by: Naloxone HCl (Naloxone Hcl 0.4 Mg/1 Ml Vial/Carp) 0.1 mg IV Q5M PRN PRN Reason: Oversedation/Resp depression Stop: 08/20/21 17:33 Ondansetron HCl (Ondansetron Inj 2 Mg/Ml 2 Ml Vial) 4 mg IV Q6H PRN PRN Reason: Nausea &/or Vomiting Stop: 08/20/21 17:33 Ondansetron HCl (Ondansetron 4 Mg Od Tab) 4 mg PO Q6H PRN PRN Reason: Nausea Stop: 08/20/21 17:33 Oxycodone HCl (Oxycodone Hcl Ir 5 Mg Tab (Immediate Release)) 5 - 10 mg PO QID PRN PRN Reason: Pain Stop: 08/05/21 01:09 Last Admin: 07/22/21 07:07 Dose: 10 mg Documented by: Pneumococcal Polyvalent Vaccine (Do Not Administer Pneumococcal Vaccine) 1 ea N/A PRN PRN PRN Reason: Notification Stop: 08/20/21 17:33 Polyethylene Glycol (Polyethylene (Miralax) 17 Gm Pack) 17 gm PO Q6 JONELLE Stop: 08/21/21 05:59 Last Admin: 07/22/21 06:11 Dose: 17 gm Documented by: Pregabalin (Pregabalin 50 Mg Cap) 50 mg PO TID JONELLE Stop: 08/19/21 08:59 Last Admin: 07/22/21 07:07 Dose: 50 mg Documented by: Senna/Docusate Sodium (Docusate Sodium/Senna 50/8.6mg Tab) 2 tab PO HS JONELLE Stop: 08/20/21 20:59 Last Admin: 07/21/21 20:50 Dose: 2 tab Documented by: Sodium Biphosphate/Sodium Phosphate (Sod Phosphate/Sod Biphosphate Enema 132 Ml Btl) 132 ml WI ONE PRN PRN Reason: Constipation Stop: 08/20/21 17:33 Trazodone HCl (Trazodone Hcl 50 Mg Tab) 150 mg PO HS JONELLE Stop: 08/19/21 20:59 Last Admin: 07/21/21 20:51 Dose: 150 mg Documented by:
== END 2021-07-22 12:51 | disposition home or self-care (01) | DRG 473 ==
LOC: ED 18:41 → 3E 22:37

== ENCOUNTER 2022-05-07 07:46 | Inpatient (IN) ==
--- NOTE | 2022-04-19 15:12 | PAT Medication Instructions ---
Medication Instructions Date of Service April 19, 2022 Home Medications Medication Instructions Recorded oxycodone 5 mg tablet 5 mg PO Q6H PRN pain, severe #20 07/21/21 tabs tramadol 50 mg tablet 50 mg PO Q6H PRN pain, moderate 07/21/21 #20 tabs cyclobenzaprine 10 mg tablet 10 mg PO TID PRN muscle spasm #20 07/22/21 tabs duloxetine 60 mg capsule,delayed release (Cymbalta) 60 mg PO QAM trazodone 150 mg tablet 150 mg PO HS linaclotide 72 mcg capsule (Linzess) 72 mcg PO QAM oxycodone 5 mg tablet 5 mg PO Q6H PRN pain, severe tramadol 50 mg tablet 50 mg PO Q6H PRN pain, moderate cyclobenzaprine 10 mg tablet 10 mg PO TID PRN muscle spasm Medical Marijuana 1 dose inhalation DIRECTED PRN Pain DO NOT take the morning of surgery linaclotide 72 mcg capsule (Linzess) 72 mcg PO QAM cyclobenzaprine 10 mg tablet 10 mg PO TID PRN muscle spasm Medical Marijuana 1 dose inhalation DIRECTED PRN Pain Take morning of surgery With a small sip of water, OTHERWISE NOTHING TO EAT OR DRINK AFTER MIDNIGHT: duloxetine 60 mg capsule,delayed release (Cymbalta) 60 mg PO QAM oxycodone 5 mg tablet 5 mg PO Q6H PRN pain, severe (if needed) tramadol 50 mg tablet 50 mg PO Q6H PRN pain, moderate (if needed) Take evening before surgery trazodone 150 mg tablet 150 mg PO HS oxycodone 5 mg tablet 5 mg PO Q6H PRN pain, severe (if needed) tramadol 50 mg tablet 50 mg PO Q6H PRN pain, moderate (if needed) cyclobenzaprine 10 mg tablet 10 mg PO TID PRN muscle spasm (if needed) Medical Marijuana 1 dose inhalation DIRECTED PRN Pain (if needed) Other Notes If you have any questions please call us at [phone] or [phone] or [phone] or [phone]
--- NOTE | 2022-04-23 13:21 | Anesthesiology Consultation ---
Date of Service April 23, 2022 Assessment & Plan (1) Encounter for pre-operative examination: - COVID screening: Per assessment on 04/23: No known COVID-19 positive contacts or current COVID-19 related symptoms. Travel screen negative. Patient vaccinated. At surgeon discretion if preop Covid testing being done. - S/P C5-6 ACDF (07/21/21): Grade view 1 with Glidescope#3, ETT 7.0 at [facility]. No issues noted per post-op anesthesia progress note. - Chlorhexidine reaction: Rash- no wipes given at PAT visit Chart Review Chart Review: Acceptable Risk for Surgery and Patient seen in Pre Admission Testing Teaching & Discussion Pre-Anesthesia Teaching/Discussion Notes: Instructed NPO after midnight before surgery,except medications with 15 cc of water. Medication instructions provided according to the [facility] guidelines. History Surgery Operation Date: 05/07/22 07:45 Proposed Procedures p L5-S1 Decompression and Fusion, Spinal Cord Monitoring - Tee Ramos DO Height/Weight Height: 5 ft 6 in Weight: 65.9 kg Allergies Allergy/AdvReac Type Severity Reaction Status Date / Time hydromorphone [From Dilaudid] Allergy Mild Rash Verified 04/19/22 13:47 chlorhexidine Allergy Rash Verified 04/19/22 13:47 Medications Home Medications Medication Instructions Recorded Confirmed Last Taken duloxetine 60 mg capsule,delayed 60 mg PO QAM 06/11/20 04/19/22 07/01/20 07:00 release (Cymbalta) trazodone 150 mg tablet 150 mg PO HS 06/11/20 04/19/22 06/30/20 23:30 linaclotide 72 mcg capsule 72 mcg PO QAM 07/20/21 04/19/22 Unknown (Linzess) oxycodone 5 mg tablet 5 mg PO Q6H PRN pain, severe #20 07/21/21 04/19/22 Unknown tabs tramadol 50 mg tablet 50 mg PO Q6H PRN pain, moderate 07/21/21 04/19/22 Unknown #20 tabs cyclobenzaprine 10 mg tablet 10 mg PO TID PRN muscle spasm #20 07/22/21 04/19/22 Unknown tabs Medical Marijuana 1 dose inhalation DIRECTED PRN 04/19/22 04/19/22 Unknown Pain Past Medical History Medical History Anxiety Chronic back pain LOWER BACK Chronic constipation Depression History of COVID-19 January 11, 2022 > Q Care in [place] > sore throat, cough, fever, no further issues or symptoms Migraine HX Exercise / Class Metabolic Activity II 4-5 Yardwork/Stairs/Walk up hill (one FS (no CP, n oSOB)) Past Family History Family History Father Diabetes Grandmother (Maternal) Diabetes Past Surgical History Surgical History Fusion of spine C3-4 ACDF (07/01/2020) C5-6 ACDF (07/21/2021): Grade view 1 with Glidescope#3, ETT 7.0 at [facility]. No issues noted per post-op anesthesia progress note. H/O cervical discectomy 2020 History of bilateral tubal ligation History of colposcopy History of urinary tract surgery urethral sling History of vaginal surgery anterior and posterior repair Past Anesthesia History No Hx of Anesthesia Complications and No Family Hx of Anesthesia Complications History of PONV No Hx of PONV and No Hx of Motion Sickness Social History Smoking Status: Former smoker Smoking cigarettes per day: Vapes daily Do You Dip or Chew Tobacco: No Smoking End Date: Quit cigarette use 8 years Hx Alcohol Use: No Alcohol type: beer, wine and hard liquor alcohol intake frequency: holidays/special occasions only Hx Substance Use: Yes substance use type: marijuana (+ Medical card (uses approximately 3x per week- vape)) Review of Systems Patient denies chest pain, shortness of breath, dyspnea on exertion, fever, chills, cough, wheezing, palpitations. Physical Exam Vital Signs VITALS BP 120/72 P 70 TEMP 98.1 SP02 99%RA RESP 16 PHYSICAL Mildly decreased cervical extension range of motion. Full TMJ range of motion. TMD 3 finger breaths Mallampati Score 2 Dentition: intact Lungs: clear throughout to auscultation Cardiac: regular rate and rhythm, no murmurs noted Spine: normal Carotid arteries: negative bruit Extremities: no edema Lab Results Anesthesia Preop Results Results Anesthesia Widget: WBC 5.20 K/ul (4.8-10.8) 04/23/22 Hgb 12.7 g/dl (12.0-16.0) 04/23/22 Hct 37.9 % (34.1-44.9) 04/23/22 Plt 276 K/uL (130-400) 04/23/22 Na 137 mmol/L (136-145) 04/23/22 K 3.8 mmol/L (3.5-5.1) 04/23/22 Cl 104 mmol/L (98-107) 04/23/22 CO2 27 mmol/L (21-32) 04/23/22 BUN 6 mg/dl (6-23) 04/23/22 Creat 0.69 mg/dl (0.6-1.2) 04/23/22 Glucose Level 79 mg/dl (70-99(Fasting)) 04/23/22 PT 10.3 Seconds (9.0-12.0) 04/23/22 PTT 25.7 Seconds (21.0-31.0) 04/23/22 INR 1.0 (0.9-1.1) 04/23/22 Urine Color Yellow 04/23/22 Urine Appearance Clear (Clear) 04/23/22 Urine pH 6.0 (4.5-7.5) 04/23/22 Urine Specific Parrish 1.021 (1.000-1.030) 04/23/22 Urine Protein Negative (Negative) 04/23/22 Urine Glucose (UA) Negative (Negative) 04/23/22 Urine Ketones Trace (Negative) H 04/23/22 Urine Blood Negative (Negative) 04/23/22 Urine Nitrite Negative (Negative) 04/23/22 Urine Bilirubin Negative (Negative) 04/23/22 Urine Urobilinogen Negative (Negative) 04/23/22 Urine Leukocyte Esterase Negative (Negative) 04/23/22 Blood Type A Positive 04/23/22 Antibody Screen NEGATIVE 04/23/22 Testing Electrocardiogram Date: 05/19/21 Findings: + NSR @ (64) Chest X-Ray Date: 05/19/21 Findings: + NAD COVID-19 Risk Screen Screening Information COVID-19 Screen Date: 04/23/22 Exposure 21 Days Family/Household +COVID Last 21 Days: No Exposure 10 Days Any COVID Exposure Last 10 Days: No Symptoms Last 10 Days Experienced COVID Sx Last 10 Days: No + COVID 0-90 Days COVID + in Last 0-90 Days: No
--- NOTE | 2022-05-07 09:40 | History & Physical Bridge Note ---
Date of Service May 07, 2022 History & Physical Bridge Note I have examined the patient, reviewed the History & Physical and in the interval since the performance of the History & Physical I have noted the following changes of clinical significance: no changes noted
--- NOTE | 2022-05-07 09:41 | History & Physical Report ---
Date of Service May 07, 2022 Assessment & Plan (1) Lumbar disc herniation with radiculopathy: Plan: L5-S1 decompression and fusion History of Present Illness Chief Complaint: Back and leg pain Primary Care Provider: Silvano Huang This is a 46-year-old female who presents with current persistent back and leg pain after failing course of nonoperative care is here for surgical invention. Allergies Allergy/AdvReac Type Severity Reaction Status Date / Time hydromorphone [From Dilaudid] Allergy Mild Rash Verified 05/07/22 08:29 chlorhexidine Allergy Rash Verified 05/07/22 08:29 Home Medications Medication Instructions Recorded Confirmed Type duloxetine 60 mg capsule,delayed 60 mg PO QAM 06/11/20 05/07/22 History release (Cymbalta) trazodone 150 mg tablet 150 mg PO HS 06/11/20 05/07/22 History linaclotide 72 mcg capsule 72 mcg PO QAM 07/20/21 05/07/22 History (Linzess) oxycodone 5 mg tablet 5 mg PO Q6H PRN pain, severe #20 07/21/21 05/07/22 Rx tabs tramadol 50 mg tablet 50 mg PO Q6H PRN pain, moderate 07/21/21 05/07/22 Rx #20 tabs cyclobenzaprine 10 mg tablet 10 mg PO TID PRN muscle spasm #20 07/22/21 05/07/22 Rx tabs Medical Marijuana 1 dose inhalation DIRECTED PRN 04/19/22 05/07/22 History Pain Past Med/Surg History Medical History Anxiety Chronic back pain LOWER BACK Chronic constipation Depression History of COVID-19 January 11, 2022 > Q Care in [place] > sore throat, cough, fever, no further issues or symptoms Migraine HX Surgical History Fusion of spine C3-4 ACDF (07/01/2020) C5-6 ACDF (07/21/2021): Grade view 1 with Glidescope#3, ETT 7.0 at [facility]. No issues noted per post-op anesthesia progress note. H/O cervical discectomy 2020 History of bilateral tubal ligation History of colposcopy History of urinary tract surgery urethral sling History of vaginal surgery anterior and posterior repair Family History Father Diabetes Grandmother (Maternal) Diabetes Social History Smoking Status: Former smoker Tobacco Type: E-cigarettes / Vaping Cigarettes Per Day: Vapes daily; Smoking End Date: Quit cigarette use 8 years; Second Hand Exposure: No; Do You Dip or Chew Tobacco: No; Tobacco Cessation Education Requested by Patient: No Hx Alcohol Use: No Hx Substance Use: Yes Substance Use Type Other:: medical card > uses approx 3x per week Preferred Language: Georgian Communication Ability: Effective Client Program Manager Required: No Beliefs That Will Affect Care: None marital status: Current Living Situation: Significant Other current occupational status: other current occupation: DOES NOT WORK Other Information That Helps Us Care for You: No Feels Safe at Home: Yes Safety Concerns: Feels Safe At This Time Assistive Devices: Glasses Physical Exam Physical Exam: Patient is alert and oriented Heart heart regular rhythm Lungs clear Results & Data Results & Data ([facility]) Vital Signs (Past 12 Hours) Vital Signs Temp Pulse Resp BP Pulse Ox O2 Del Method 05/07/22 08:36 36.7 C 52 L 16 107/65 99 Room Air
[2022-05-07] MEDS ORDERED: ONDANSETRON INJ 2 MG/ML 2 ML VIAL ONE (10:11)
[2022-05-07] MEDS ORDERED: MIDAZOLAM HCL 1 MG/ML 2ML VIAL ONE (10:11)
[2022-05-07] MEDS ORDERED: LIDOCAINE 2% MPF LOCAL 5 ML VIAL INFIL ONE (10:11)
[2022-05-07] MEDS ORDERED: PROPOFOL IV EMULSION 10 MG/ML 20 ML VIAL IV ONE (10:11)
[2022-05-07] MEDS ORDERED: DEXAMETHASONE SOD INJ 4 MG/ML VIAL ONE (10:11)
[2022-05-07] MEDS ORDERED: fentaNYL citrate 100 MCG/2 ML VIAL ONE ×2 (10:12→11:12)
[2022-05-07] MEDS ORDERED: FLUMAZENIL 0.1 MG/1 ML 10 ML VIAL IV PRN (10:16)
[2022-05-07] MEDS ORDERED: ONDANSETRON INJ 2 MG/ML 2 ML VIAL IV PRN ×2 (10:16→14:19)
[2022-05-07] MEDS ORDERED: ATROPINE SULFATE 0.1 MG/ML 10ML SYR IV PRN (10:16)
[2022-05-07] MEDS ORDERED: PROMETHAZINE HCL 12.5 MG in SODIUM CHLORIDE 0.9% 50 ML IV PRN ×2 (10:16→14:19)
[2022-05-07] MEDS ORDERED: ePHEDrine sulfate 50 MG/ML AMP IV PRN (10:16)
[2022-05-07] MEDS ORDERED: NALOXONE HCL 0.4 MG/1 ML VIAL/CARP IV PRN ×2 (10:16→14:19)
[2022-05-07] MEDS ORDERED: LABETALOL HCL IV 5 MG/ML 20ML IV PRN (10:16)
[2022-05-07] MEDS ORDERED: EPINEPHrine INJ 1 MG/ML AMP ONE (10:17)
[2022-05-07] MEDS ORDERED: ceFAZolin 330 MG/ML 1 GM VIAL ONE (10:17)
[2022-05-07] MEDS ORDERED: BUPIVACAINE 0.25% 30 ML VIAL ONE (10:17)
[2022-05-07] MEDS ORDERED: FLOSEAL HEMOSTATIC MATRIX 10ML TOP ONE (11:30)
[2022-05-07] MEDS ORDERED: GLYCOPYRROLATE 0.2 MG/ML VIAL ONE (12:03)
[2022-05-07] MEDS ORDERED: NEOSTIGMINE METHYLSULFATE 1 MG/ML 10ML VIAL ONE (12:03)
[2022-05-07] MEDS ORDERED: ROCURONIUM BROMIDE 10 MG/ML 5 ML VIAL IV ONE (12:05)
--- NOTE | 2022-05-07 12:10 | Operative Report ---
Post Operative Report Pre & Post Diagnosis Operation Date: 05/07/22 09:35 Pre-Op Diagnosis: Lumbar disc herniation with radiculopathy Post-Op Diagnosis: Lumbar disc herniation with radiculopathy I identified the patient and participated in the time-out.: Yes Procedure Operation Date: 05/07/22 09:35 Actual Procedures #1 lumbar decompression with bilateral medial facetectomies and foraminotomies L4-L5 L5-S1. #2 posterior spinal fusion L5-S1. #3 placement posterior instrumentation L5-S1. #4 interbody fusion L5-S1. #5 placement of Spira 12 x 22 mm at L5-S1. #6 placement locally harvested morselized autograft in the posterior gutters. #7 placement of I factor combined with V toss in the interbody space and posterior lateral gutters. Surgeon Tee Ramos, DO Vamp Liner Donny Nathan Estimated Blood Loss 100 Findings Consistent with Post-Op Diagnosis Specimens None Indications This is a 46-year-old female who presents with bulge diagnosis after failed course of nonoperative care she is here for the above-mentioned procedure. Description of Procedure Patient was met with identified informed consent obtained. Patient was then taken to the operative suite underwent ablation placed in a prone position the Anish table atop the Jose frame. All bony prominences well-padded eyes inspected to ensure no external pressure placed upon the. This point the lumbar spine was prepped and draped in normal sterile fashion. Sharp dissection with assistance of Bovie cautery was performed down to and exposing the lamina and transverse processes of L5 and sacral ala bilaterally. From caudal to cephalad fashion complete laminectomy of L5 partial laminectomy of L4 was performed including bilateral medial facetectomy and foraminotomies addressing all lateral recess and foraminal stenosis. Pedicle screws were then placed in L5 and S1 levels bilaterally with assistance of fluoroscopy and appropriately sized stephanie placed. By way of entrance foraminal approach on the left complete discectomy of L5-S1 was performed endplates curetted to subcortical bleeding bone and a 12 x 22 mm spiral cage with I factor tapped in position. The rods then locked in final position bilaterally. The transverse processes of L5 and sacral ala burred to subcortically bone. I factor combined with V toss and locally harvested morselized autograft was placed in the posterior gutters. 15 round ALFREDO inserted. The incision was closed with 1 Vicryl the fascia 2-0 Vicryl subcutaneously and 4 Monocryl for final skin closure. Steri-Strip sterile dressings placed. Patient waken taken PACU stable condition. Please note spinal cord monitoring was utilized at the procedure no changes noted. Lastly Donny Nathan was present at the entire surgery involved the patient positioning complex portion of the surgery and final skin closure. I attest to the content of the Intraoperative Record and any orders documented therein. Any exceptions are noted below.
[2022-05-07] MEDS: fentaNYL citrate 100 MCG/2 ML VIAL IV PRN ×4 (12:45→13:00)
[2022-05-07] MEDS ORDERED: MoRPHine SULFATE 4 MG/ML 1 ML CARP\\VIAL ONE (12:56)
[2022-05-07] MEDS ORDERED: MoRPHine SULFATE 10 MG/ML CARP/VIAL IV STA (12:57)
[2022-05-07] MEDS: MoRPHine SULFATE 4 MG/ML 1 ML CARP\\VIAL IV PRN ×10 (13:05→19:29)
[2022-05-07] MEDS ORDERED: MoRPHine SULFATE 10 MG/ML CARP/VIAL ONE ×2 (13:06→13:26)
--- NOTE | 2022-05-07 14:13 | Anesthesiology Progress Note ---
Date of Service May 07, 2022 Anesthesia Post Procedure Vital Signs Vital Signs: Temp Pulse Resp BP Pulse Ox O2 Del Method O2 Flow Rate 05/07/22 13:55 36.6 C 61 16 119/61 100 Nasal Cannula 2 05/07/22 13:45 58 L 16 126/71 100 Nasal Cannula 2 05/07/22 13:35 55 L 16 122/67 100 Nasal Cannula 2 05/07/22 13:25 61 16 118/71 100 Nasal Cannula 2 05/07/22 13:15 63 16 129/83 100 Nasal Cannula 2 05/07/22 13:05 72 16 131/59 L 100 Oxymask 5 05/07/22 12:55 62 16 138/74 100 Oxymask 5 05/07/22 12:45 94 H 16 150/98 H 100 Oxymask 5 05/07/22 12:38 36.1 C L 91 H 18 151/95 H 100 Oxymask 5 05/07/22 08:36 36.7 C 52 L 16 107/65 99 Room Air Pain Intensity Back: Pain Intensity: 9 Transfer of Care Handoff Completed per policy Notes Mental Status: alert / awake / arousable Patient Amnestic to Procedure: Yes Nausea / Vomiting: adequately controlled Pain: adequately controlled Airway Patency, RR, SpO2: stable & adequate BP & HR: stable & adequate Hydration State: stable & adequate Anesthetic Complications: no major complications apparent
[2022-05-07] MEDS ORDERED: SOD PHOSPHATE/SOD BIPHOSPHATE ENEMA 132 ML BTL PR PRN (14:19)
[2022-05-07] MEDS ORDERED: ALUMINUM/MAGNESIUM SUSP 30 ML UDC PO PRN (14:19)
[2022-05-07] MEDS ORDERED: FAMOTIDINE 20 MG TAB PO PRN (14:19)
[2022-05-07] MEDS ORDERED: METOCLOPRAMIDE HCL INJ 5 MG/ML 2 ML VIAL IV PRN (14:19)
[2022-05-07] MEDS ORDERED: ACETAMINOPHEN 1,000 MG/100 ML VIAL IV PRN (14:19)
[2022-05-07] MEDS ORDERED: bisacodyL 10 MG SUPP PR PRN (14:19)
[2022-05-07] MEDS ORDERED: LORazepam 0.5 MG in SYRINGE 0.25 ML IV PRN (14:19)
[2022-05-07] MEDS ORDERED: traMADol HCL 50 MG TABLET PO PRN (14:19)
[2022-05-07] MEDS ORDERED: MAGNESIUM HYDROXIDE SUSP 30 ML UDC PO PRN (14:19)
[2022-05-07] MEDS ORDERED: ACETAMINOPHEN 500 MG TAB PO PRN (14:19)
[2022-05-07] MEDS ORDERED: diphenhydrAMINE Capsule 25 MG CAP PO PRN (14:19)
[2022-05-07] MEDS ORDERED: hydrOXYzine HCl 25 MG TAB PO PRN (14:19)
[2022-05-07] MEDS ORDERED: LORazepam 0.5 MG TAB PO PRN (14:19)
[2022-05-07] MEDS ORDERED: ONDANSETRON 4 MG OD TAB PO PRN (14:19)
--- NOTE | 2022-05-07 14:49 | Fluoroscopy Report ---
INTRAOPERATIVE RADIOGRAPHS CLINICAL HISTORY: Lumbar spinal fusion surgery. Fluoroscopy time: 29 seconds. FINDINGS: 2 spot fluoroscopic views of the lumbar spine are presented. There has been discectomy at L 5-S1 with laminectomy and posterior fusion at this level. Interpedicular screws are in place. The ort hopedic hardware appears intact. IMPRESSION: Intraoperative images from lumbar spinal fusion surgery as above. Electronically signed by: Jose Rondon M.D. 05/07/2022 2:47 PM
[2022-05-07] MEDS ORDERED: MEDICAL MARIJUANA INH PRN (15:02)
[2022-05-07] MEDS: LACTATED RINGER'S 1,000 ML IV SCH (15:25)
[2022-05-07] MEDS: oxyCODONE HCL IR 5 MG TAB (IMMEDIATE RELEASE) PO PRN ×2 (17:35→21:35)
[2022-05-07] MEDS: ceFAZolin 1000MG 1,000 MG/7.5 ML SYR IV SCH (17:38)
[2022-05-07] MEDS: DOCUSATE SODIUM/SENNA 50/8.6MG TAB PO SCH (21:34)
[2022-05-07] MEDS: traZODone HCL 100 MG TAB PO SCH (21:36)
[2022-05-08] MEDS: MoRPHine SULFATE 4 MG/ML 1 ML CARP\\VIAL IV PRN ×3 (01:15→21:53)
[2022-05-08] MEDS: LACTATED RINGER'S 1,000 ML IV SCH ×2 (01:17→09:59)
[2022-05-08] MEDS: ceFAZolin 1000MG 1,000 MG/7.5 ML SYR IV SCH (01:31)
[2022-05-08] MEDS: POLYETHYLENE (MIRALAX) 17 GM PACK PO SCH ×3 (05:36→17:55)
[2022-05-08 08:09] LABS: Basophils # (auto) 0.03 K/uL (0-0.2); Basophils % (auto) 0.3 %; Eosinophils # (auto) 0.02 K/uL (0-0.50); Eosinophils % (auto) 0.2 %; Hematocrit (blood only) 30.9 % (34.1-44.9); Hemoglobin 10.1 g/dl (12.0-16.0); Immature Granulocytes # (auto) 0.03 K/uL (0.00-0.02); Immature Granulocytes % (auto) 0.3 %; Lymphocytes # (auto) 1.09 K/uL (1.2-3.4); Lymphocytes % (auto) 12.3 %; Mean Corpuscular Hemoglobin 31.3 pg (25.0-34.0); Mean Corpuscular Hgb Conc 32.7 g/dL (32.0-36.0); Mean Corpuscular Volume 95.7 fL (80.0-100.0); Mean Platelet Volume 10.9 fL (9.4-12.3); Monocytes % (auto) 5.6 %; Neutrophils % (auto) 81.3 %; Platelet Count 273 K/uL (130-400); RDW Coefficient of Variation 13.1 % (11.5-14.5); RDW Standard Deviation 45.7 fL (36.4-46.3); Red Blood Count 3.23 M/uL (3.93-5.22); White Blood Count 8.87 K/ul (4.8-10.8)
[2022-05-08 08:45] LABS: BUN Creatinine Ratio 9.4 (10-20); Calcium 8.3 mg/dl (8.5-10.1); Creatinine Clr Calc Pharmacy 102.8 ml/min; Potassium 3.2 mmol/L (3.5-5.1)
--- NOTE | 2022-05-08 08:49 | Orthopedic Progress Note ---
Date of Service May 08, 2022 Assessment & Plan (1) Lumbar disc herniation with radiculopathy: Plan: At this time initiate physical therapy monitor ALFREDO operatively discharge home the next day or so. Admission and Anticipated Discharge Date Admission Date: May 07, 2022 Subjective Patient's back pain controlled leg pain improved he was up last evening. Physical Exam Physical Exam: On exam she is good strength testing appears comfortable. Results & Data ([facility]) Vital Signs (Past 12 Hours) Vital Signs Temp Pulse Resp BP Pulse Ox O2 Del Method 05/08/22 06:57 36.4 C L 69 16 93/58 L 94 Room Air 05/08/22 03:00 36.7 C 60 18 89/50 L 95 Room Air 05/07/22 22:00 36.5 C 65 18 101/61 95 Room Air
[2022-05-08] MEDS: oxyCODONE HCL IR 5 MG TAB (IMMEDIATE RELEASE) PO PRN ×2 (08:57→13:13)
[2022-05-08] MEDS: linaCLOtide 72 MCG CAPSULE PO SCH (10:00)
[2022-05-08] MEDS: dexAMETHasone 6 MG in SYRINGE 0 ML IV SCH (10:01)
[2022-05-08] MEDS: DULoxetine HCL 60 MG CAP PO SCH (10:01)
[2022-05-08] MEDS: MoRPHine SULFATE 2 MG/ML CARP IV PRN ×2 (10:07→17:54)
[2022-05-08] MEDS: DOCUSATE SODIUM/SENNA 50/8.6MG TAB PO SCH (21:58)
[2022-05-08] MEDS: traZODone HCL 100 MG TAB PO SCH (21:58)
[2022-05-09] MEDS: POLYETHYLENE (MIRALAX) 17 GM PACK PO SCH ×5 (01:10→23:17)
[2022-05-09] MEDS: MoRPHine SULFATE 4 MG/ML 1 ML CARP\\VIAL IV PRN (06:44)
[2022-05-09] MEDS: DULoxetine HCL 60 MG CAP PO SCH (08:47)
[2022-05-09] MEDS: linaCLOtide 72 MCG CAPSULE PO SCH (08:47)
[2022-05-09] MEDS: dexAMETHasone 6 MG in SYRINGE 0 ML IV SCH (08:47)
--- NOTE | 2022-05-09 11:17 | Orthopedic Progress Note ---
Date of Service May 09, 2022 Assessment & Plan (1) Lumbar disc herniation with radiculopathy: Plan: At this time encourage her to continue with activity as tolerated. We will maintain the ALFREDO drain tomorrow. Have added Neurontin p.o. 3 times daily to see if this can help with component of her pain. Hopefully discharge home tomorrow. Admission and Anticipated Discharge Date Admission Date: May 07, 2022 Subjective Patient's back pain is controlled but still troublesome. She notes some leg pain. Starting therapy. She is ambulating on her own. Physical Exam Physical Exam: On exam she sitting up in bed. Is good strength testing. ALFREDO drain is functional. Results & Data ([facility]) Vital Signs (Past 12 Hours) Vital Signs Temp Pulse Resp BP Pulse Ox O2 Del Method 05/09/22 07:28 36.8 C 59 L 16 103/59 L 96 Room Air 05/08/22 23:18 36.7 C 60 16 99/57 L 94 Room Air
[2022-05-09] MEDS: MoRPHine SULFATE 2 MG/ML CARP IV PRN ×2 (12:05→18:05)
[2022-05-09] MEDS: CYCLOBENZAPRINE HCL 10 MG TAB PO PRN ×2 (12:06→18:05)
[2022-05-09] MEDS: GABAPENTIN 300 MG CAP PO SCH ×2 (14:01→21:10)
[2022-05-09] MEDS: oxyCODONE HCL IR 5 MG TAB (IMMEDIATE RELEASE) PO PRN ×2 (14:04→21:08)
[2022-05-09] MEDS: DOCUSATE SODIUM/SENNA 50/8.6MG TAB PO SCH (21:08)
[2022-05-09] MEDS: traZODone HCL 100 MG TAB PO SCH (21:09)
[2022-05-10] MEDS: MoRPHine SULFATE 4 MG/ML 1 ML CARP\\VIAL IV PRN (00:47)
[2022-05-10] MEDS: CYCLOBENZAPRINE HCL 10 MG TAB PO PRN ×3 (00:47→11:57)
[2022-05-10] MEDS: POLYETHYLENE (MIRALAX) 17 GM PACK PO SCH (05:03)
[2022-05-10] MEDS: dexAMETHasone 6 MG in SYRINGE 0 ML IV SCH (07:43)
[2022-05-10] MEDS: oxyCODONE HCL IR 5 MG TAB (IMMEDIATE RELEASE) PO PRN ×2 (07:43→11:57)
[2022-05-10] MEDS: DULoxetine HCL 60 MG CAP PO SCH (07:44)
[2022-05-10] MEDS: linaCLOtide 72 MCG CAPSULE PO SCH (07:44)
[2022-05-10] MEDS: GABAPENTIN 300 MG CAP PO SCH (07:45)
--- NOTE | 2022-05-10 10:24 | Discharge Summary ---
Date of Service May 10, 2022 Admission HPI Per Admitting Provider This is a 46-year-old female who presents with current persistent back and leg pain after failing course of nonoperative care is here for surgical invention. Principal Diagnosis Lumbar spinal stenosis with radiculopathy Discharge Data Allergies Allergy/AdvReac Type Severity Reaction Status Date / Time hydromorphone [From Dilaudid] Allergy Mild Rash Verified 05/07/22 08:29 chlorhexidine Allergy Rash Verified 05/07/22 08:29 Procedures Performed Operation Date: 05/07/22 09:35 Actual Procedures p L5-S1 Decompression and Fusion with Spinal Cord Monitoring(Not Applicable) - Tee Ramos DO Ordered Studies 05/07/22 [place] lumbar spine 2-3V Routine Hospital Course (1) Lumbar disc herniation with radiculopathy: Patient with lumbar decompression fusion tolerated so was taken to orthopedic for postoperative. Postop and when she was up and ambulating progressed to p ostop day 2 on postop day #3 pain was markedly improved ALFREDO drain decreased appropriate. Excellent strength testing. Subsequently discharged home. Discharge orders and instructions can be found in the chart for further review. Total Time Total Time Spent Total Time Spent (In Minutes): 20 minutes Discharge Plan Discharge Items Patient Disposition: Home - Self-Care Reason For Visit: POST OP Discharge Diagnosis: Lumbar spinal stenosis with radiculopathy Activity: As commented below Non-emergency contact: Primary Care Provider Call non-emergency contact if: you have any medication questions Follow-up/Referrals: Silvano Huang [Primary Care Provider] - Diet: Regular Addtl Attending Provider Instructions: ACTIVITY RECOMMENDATIONS: SELF CARE INSTRUCTIONS AFTER THORACIC/LUMBAR FUSIONS 1. You may walk to your tolerance. It is good exercise for your legs and back. Expect some back and intermittent leg aches and pains. 2. You may perform "counter-top" level activities (make a sandwich, ariel with a project, etc.). 3. No bending or lifting of more than 10 pounds or back twisting of any nature (roll like a log when turning in bed). 4. You may ride in a car for 20-30 minutes at a time. No driving until after your first visit with your doctor. 5. Frequent changes of position and restricting sitting to 30 minutes at a time will help limit the amount of back spasms and stiffness you may experience. 6. You may discontinue the use of ambulatory aids (cane, crutches, etc.) once your strength and confidence allow. 7. You may ferry boat captain the shower and let water strike your incision when you arrive home at least once daily. Do not take a tub bath, sit in a hot tub or go into a swimming pool until after your first recheck in the office. SPECIAL CARE INSTRUCTIONS: VERY IMPORTANT TO READ AND REVIEW A. Your surgical incision has been closed with a cosmetic suture under the skin that will dissolve in about 6 weeks. In 14 days, you can use a pair of clean scissors and cut the suture that is left outside of the skin at the ends of your incision. 1. The small skin tapes can be removed 7 days after surgery if they have not fallen off by that point. 2. You may keep the wound open to air as much as possible to promote healing after post-op day number 5 unless told otherwise by your doctor. 3. If you think the wound looks like it is becoming infected (redness or wo rsening drainage) and/or you are experiencing fever, chill or worsening back pain and muscle spasms, contact the office so that we may evaluate you as soon as possible. B. Complications are uncommon, but please contact us if you have any signs or symptoms of: 1. wound infection (fever higher than 102.5 degrees F, redness, separation of wound, drainage, or increasing pain from the incision) 2. blood clots in legs (pain, swelling, redness and warmth in legs) 3. urinary tract infection (fever higher than 102.5 degrees F, burning upon urination or increased frequency of urination) 4. nerve problems (inability to walk on your toes or heels, numbness, loss of bowel or bladder control) 5. any other symptoms that concern you C. Please call the office at if you have any concerns or questions about your operation or recovery. D. No smoking! Smoking drastically decreases the chance of a solid fusion. E. Do not take any anti-inflammatory medications (Indocin, Advil, Motrin, Aspirin, Naprosyn, etc.) as these may inhibit the chance of a solid fusion. Tylenol is okay to take for pain. MANAGING PAIN AFTER SPINAL SURGERY 1. Narcotic medication is intended for short-term use and will be provided for surgical pain. Surgical pain usually lasts for a period of 4-6 weeks. Narcotic medication includes Percocet, Vicodin, Darvocet, Tylenol #3 or Lortab. 2. Longer-term pain is more appropriately treated with non-narcotic medication such as Tylenol ES. 3. Muscle spasm is not appropriately treated with narcotics. Muscle relaxers such as Soma, Flexeril or Skelaxin can be used along with Tylenol ES. 4. Remember that we all live with some "aches and pains". This is not unusual or uncommon after an injury or as we get older. a. Back pain is expected and may include muscle spasms for 4 to 6 weeks after surgery. The pain should gradually improve. If the pain worsens for no apparent reason, please contact the office. b. Intermittent leg pain may also be experienced and should not be concerned about unless it worsens for no apparent reason. If so, please contact the office. 5. We will provide appropriate medication within the normal guidelines of their prescribed use. We will also be very cautious and aware of potential abuse and extended duration of patients' medication needs. a. Pain medications are for your comfort and to assist with sleep and rest so that the tissue can heal. They are not provided in order to return to normal activity and should not be used through the day. To do so or worsening pain at night can result from ongoing tissue damage and development of tolerance to the prescribed medicine. 6. Please allow 2-3 days to process refills. Prescriptions will not be mailed but must be picked up at the office. FOLLOW UP VISIT: Keep your scheduled follow-up appointment. Any questions, please call the office at . Pending Studies at Discharge: No Stand-Alone Forms: [facility], Smoking Cessation Medications and DC Order Prescriptions: New tramadol 50 mg tablet 50 mg PO Q6H PRN (Reason: pain, moderate) Qty: 30 0RF oxycodone 5 mg tablet 5 mg PO Q6H PRN (Reason: pain, severe) Qty: 30 0RF gabapentin 300 mg Capsule 300 mg PO TID Qty: 90 0RF Continued trazodone 150 mg Tablet 150 mg PO HS duloxetine [Cymbalta] 60 mg Capsule,Delayed Release(Dr/Ec) 60 mg PO QAM Linzess 72 mcg Capsule 72 mcg PO QAM tramadol 50 mg tablet 50 mg PO Q6H PRN (Reason: pain, moderate) Qty: 20 0RF oxycodone 5 mg tablet 5 mg PO Q6H PRN (Reason: pain, severe) Qty: 20 0RF cyclobenzaprine 10 mg tablet 10 mg PO TID PRN (Reason: muscle spasm) Qty: 20 0RF Medical Marijuana 1 dose inhalation DIRECTED PRN (Reason: Pain) Discharge Orders: Discharge Order (Routine); Ordered 05/10/22 Ordered By: Tee Ramos Admission Data Admit Date/Time: 05/07/22 12:14 Attending Provider: Tee Ramos Admit Provider: Tee Ramos Primary Care Provider: Silvano Huang
== END 2022-05-10 13:12 | disposition home or self-care (01) | DRG 455 ==
LOC: ASU 07:46 → 3W 12:14